=== PATIENT | female | born 1945 | race Two or more races ===

== ENCOUNTER 2025-04-19 15:11 | Inpatient (IN) | payer MEDICARE, MEDICAID, SELFPAY ==
[2025-04-19] VITALS (7 sets, daily range): BP systolic 127–153; BP diastolic 66–91; PULSE 58–102; RESP 16–18; TEMP 36.7–36.9; O2SAT 96–98; BMI 44.9
--- NOTE | 2025-04-19 16:24 | EKG_ITS ---
[facility] Test Date: 2025-04-19 Pat Name: NOE AUSTIN Department: Room: - Gender: Female Test Grader: : 1945 Requested By: Adeel Dominguez Order Number: [id number] Reading MD: Adeel Dominguez Measurements Intervals [place] Rate: 66 P: VA: QRS: -4 QRSD: 85 T: 38 QT: 345 QTc: 362 Interpretive Statements ATRIAL FIBRILLATION WITH ABERRANT CONDUCTION OR VENTRICULAR PREMATURE COMPLEXES ABNORMAL RHYTHM ECG Compared to ECG 05/26/2024 10:05:11 Ventricular premature complex(es) now present Aberrant conduction of supraventricular beat(s) now present /store/S0/[id number].pdf
--- NOTE | 2025-04-19 16:24 | XR_ITS ---
Examination: AP chest single view TECHNIQUE: AP portable upright chest single view Date and time: April 19, 2025 1635 hours Comparison 05/26/2024 INDICATIONS: Shortness of breath chest pain beginning today. FINDINGS: Mild chronic heart failure pattern Mild enlargement cardiac contour with prominent vascular congestion Suspicious for early septal edema the lung bases Severe osteopenia IMPRESSION: Mild heart failure pattern
--- NOTE | 2025-04-19 16:26 | PD.EDADULT ---
ED General RME/HPI General Chief complaint: Chest Pain Stated complaint: CHEST PAIN Time Seen by Provider: 04/19/25 16:14 Arrival date/time: 04/19/25 15:11 RME / HPI RME / HPI narrative: 80-year-old female with past medical history of hypertension, IBS, generalized weakness, CHF, hypothyroidism, and anxiety [facility] due to worsening shortness of breath and chest pain for the past 2 weeks. Patient states that she has had pressure-like chest pain for the past 2 weeks which is substernal and radiates to her back. She states that this chest pain does not improve or worsen with position and does not improve or worsen with rest. She says that the pain is continuous and today she has been having the chest pain since the morning up the time of assessment. She also mentioned that she has been a little bit more short of breath than normal and has been requiring oxygen since yesterday which is new for her. Otherwise denies having any abdominal pain, diarrhea, changes in urination, falls, fevers, or chills. Patient is mostly bedridden due to recent surgery due to fractures from a fall. Denies any smoking, drugs, alcohol Related Data Home Medications ?Medication ?Instructions ?Recorded ?Confirmed alprazolam 0.5 mg tablet 0.5 mg PO BID PRN Anxiety 01/05/21 05/26/24 gabapentin 100 mg capsule 100 mg PO HS 10/14/21 05/26/24 levothyroxine 25 mcg tablet 25 mcg PO QAM 10/14/21 05/26/24 acetaminophen 325 mg tablet 650 mg PO Q6H PRN Pain 12/28/21 05/26/24 amiodarone 200 mg tablet 200 mg PO QDAY 12/28/21 05/26/24 bisacodyl 10 mg rectal suppository 10 mg ID Q72H PRN Constipation 12/28/21 05/26/24 (Dulcolax (bisacodyl)) esomeprazole magnesium 40 mg 40 mg PO QAM 12/28/21 05/26/24 capsule,delayed release hydrocodone 5 mg-acetaminophen 325 1 tab PO Q6H PRN Pain 12/30/21 05/26/24 mg tablet furosemide 20 mg tablet 1 tab PO QDAY 06/06/22 05/26/24 Held on 05/31/24. Instructions: Resume on 06/07/24. Hold due to low BP, reevaluate with PCP magnesium hydroxide 400 mg/5 mL 5 ml PO QDAY PRN Constipation 08/12/22 05/26/24 oral suspension (Milk of Magnesia) ursodiol 200 mg capsule 200 mg PO BID 09/07/22 05/26/24 docusate sodium 100 mg capsule 100 mg PO BID 05/26/24 05/26/24 metoprolol succinate 100 mg 100 mg PO QDAY 05/26/24 05/26/24 tablet,extended release 24 hr (Toprol XL) Previous Rx's ?Medication ?Instructions ?Recorded lisinopril 20 mg tablet 20 mg PO QDAY #0 tabs 01/06/22 Held on 05/31/24. Instructions: Resume on 06/07/24. Hold due to low BP, re-evaluate with PCP Allergies Allergy/AdvReac Type Severity Reaction Status Date / Time No Known Allergies Allergy Verified 05/26/24 09:43 Review of Systems Review of Systems Systems Reviewed: All systems reviewed, normal except as documented Past Medical History Past Medical History CARDIAC: Positive Cardiac Disorders, Atrial Fibrillation and Hypertension RESPIRATORY: Positive Emphysema GASTROINTESTINAL: Positive Gastrointestinal Disorders, Ulcer, Gastroesophageal Reflux Disease and Obesity REPRODUCTIVE: Positive Previous Pregnancies MUSCULOSKELETAL: Positive Musculoskeletal Disorders and Arthritis ENT: Positive Deafness ENDOCRINE: Positive Endocrine Disorders and Hyperthyroidism PSYCHO/SOCIAL: Positive Depression and Anxiety OTHER HISTORY: Positive Hospitalization, Falls, Chicken Pox and Measles Family History FAMILY HISTORY: Positive Family Cancer Surgical History SURGICAL: Positive Tonsillectomy, Joint Replacement and Section Social History SMOKING STATUS: Never smoker SUBSTANCE USE: does not use ALCOHOL: Never ED Exam Narrative Physical exam: Gen: A&O X 3, NAD, obese HEENT: NCAT, EOMI, Pupils reactive YUMIKO, not icteric. External ears normal. No rhinorrhea. Moist mucous membranes, missing dentation. Neck: Supple, full range of motion, no observable masses, No meningeal sign. Lungs: No Respiratory distress, clear bilateral. CV: irregular rate, no murmurs. Abdomen: Soft, nondistended, No rebound tenderness. MSK: No joint swelling, no redness, peripheral pulses difficult to palpate due to swelling, bilateral anterior lower extremity with good healing anterior surgical scars. Skin: No rashes, petechiae, lesions. Neuro: No focal neurological deficits appreciated, sensory and motor intact. Psych: Cooperative, appropriate mood and effect. Course Quality Measures none Orders Category Date Time Status Bedside COVID-19 Antigen Test NOW Care 04/19/25 17:39 Active Bedside Influenza A&B Antigen Test NOW Care 04/19/25 17:[address] Screening NOW Care 04/19/25 18:09 Active Relations Director Q4H START 00 Care 04/19/25 16:24 Active Continuous Pulse Oximetry NOW Care 04/19/25 16:24 Completed EKG (ED ONLY) *Do not use* NOW Care 04/19/25 16:[address] angio chest Stat Exams 04/19/25 18:09 Ordered CXRP [XR chest 1V portable] Stat Exams 04/19/25 16:24 Completed EKG (ED Only) Stat Exams 04/19/25 16:24 Draft US venous doppler LE BI Stat Exams 04/19/25 17:59 Ordered CBC [CBC] Stat Lab 04/19/25 17:07 Completed CMP [Comprehensive Metabolic Panel] Stat Lab 04/19/25 17:07 Completed Drug Screen,Urine Stat Lab 04/19/25 16:24 Ordered Magnesium Stat Lab 04/19/25 17:07 Completed Procalcitonin Stat Lab 04/19/25 17:07 Completed Troponin I Stat Lab 04/19/25 17:07 Completed UA [Urinalysis] Stat Lab 04/19/25 16:24 Ordered Furosemide Inj [Lasix Inj] Med 04/19/25 17:00 Discontinued 40 mg IVP X1 ONE Vital Signs Vital signs: Vital Signs Temperature 98.0 F 04/19/25 15:26 Pulse Rate 70 04/19/25 15:26 Respiratory Rate 18 04/19/25 15:26 Blood Pressure 127/68 04/19/25 15:26 Pulse Oximetry (%) 98 04/19/25 15:26 Oxygen Delivery Method Room Air 04/19/25 15:26 Discharge Plan Prescriptions/Referrals Prescriptions/Med Rec: No Action magnesium hydroxide [Milk of Magnesia] 400 mg/5 mL suspension 5 ml PO QDAY PRN (Reason: Constipation) ursodiol 200 mg capsule 200 mg PO BID alprazolam 0.5 mg Tablet 0.5 mg PO BID PRN (Reason: Anxiety) hydrocodone-acetaminophen 5-325 mg Tablet 1 tab PO Q6H PRN (Reason: Pain) lisinopril 20 mg Tablet 20 mg PO QDAY Qty: 0 0RF Rx Instructions: Hold if SBP <110 or DBP <60 levothyroxine 25 mcg tablet 25 mcg PO QAM Patient Comments: TAKE 1 TABLET BY MOUTH EVERY DAY IN THE MORNING ON AN EMPTY STOMACH FOR THYROID gabapentin 100 mg capsule 100 mg PO HS acetaminophen 325 mg Tablet 650 mg PO Q6H PRN (Reason: Pain) amiodarone 200 mg Tablet 200 mg PO QDAY bisacodyl [Dulcolax (bisacodyl)] 10 mg Suppository 10 mg ID Q72H PRN (Reason: Constipation) esomeprazole magnesium 40 mg Capsule,Delayed Release(Dr/Ec) 40 mg PO QAM furosemide 20 mg tablet 1 tab PO QDAY Rx Instructions: Hold for SBP<110, DBP <60 metoprolol succinate [Toprol XL] 100 mg Tablet Extended Release 24 Hr 100 mg PO QDAY docusate sodium 100 mg Capsule 100 mg PO BID Referrals: No Primary/Family,Physician [Primary Care Provider] - In 1 week Problem List Clinical Impression: Hypoxia Patient/Caregiver Discharge Instructions Print Language: American MD Attestation MD Attestation The patient was seen by the resident physician and I personally evaluated the patient as well. I, the co-signing physician, was present during the entire ER visit. I agree with the plan and documentation. MDM Narrative MDM hospital course: Patient was seen and evaluated upon arrival. Diagnostic labs and imaging were ordered. Given chest x-ray findings will order Lasix 40 mg IV x 1 for vascular congestion. Given that patient does not use oxygen at home and is desaturating and has been in mostly bedridden given recent lower extremity surgery will order ultrasound venous Doppler and Chest CTA as is desaturating off oxygen. 1800: Will transfer patient's care to maintenance supervisor 2nd shift ED physician Dr. Chino. Case disclosed with Attending Dr. Ronan Dominguez PGY2 Disclaimer: Even though this this note was dictated by speech recognition and even though it was carefully revised there may still be minor errors in office machine repair shop supervisor due to voice recognition software. Medication Administration(s) Medication Administration History Discontinued Medications Furosemide (Furosemide Inj 10 Mg/Ml 4ml Vial) 40 mg IVP X1 ONE Stop: 04/19/25 17:01 Last Admin: 04/19/25 17:32 Dose: 40 mg Documented By: ANGEL
[2025-04-19 17:18] LABS: Basophils # (Auto) 0.0 Thou/mm3 (0.0-0.2); Basophils % (Auto) 0 % (0-2.5); Eosinophils # (Auto) 0.1 Thou/mm3 (0.0-0.5); Eosinophils % (Auto) 2 % (0-10); Hematocrit 39.9 % (36.0-46.0); Hemoglobin 12.4 g/dL (12.0-16.0); Immature Granulocytes Auto 0.03 Thou/mm3 (0.00-0.00); Lymphocytes # (Auto) 1.0 Thou/mm3 (1.0-4.8); Lymphocytes % (Auto) 13 % (10-50); Mean Corpuscular HGB Conc 31.1 g/dl (31.0-37.0); Mean Corpuscular Hemoglobin 29.0 pg (25.0-35.0); Mean Corpuscular Volume 93 fL (80-100); Monocytes # (Auto) 0.7 Thou/mm3 (0.0-0.8); Monocytes % (Auto) 9 % (0-12); Neutrophils # (Auto) 6.0 Thou/mm3 (1.8-7.7); Neutrophils % (Auto) 76 % (37-80); Nucleated Red Blood Cell # 0.00 Thou/mm3 (0.00-0.00); Nucleated Red Blood Cell % 0 /100 WBC (0); Platelet Count 232 Thou/mm3 (140-440); RDW Standard Deviation 53.1 fL (36.4-46.3); Red Blood Count 4.27 Miln/mm3 (4.00-5.20); White Blood Count 7.9 Thou/mm3 (3.6-11.0)
[2025-04-19] MEDS: FUROSEMIDE INJ 10 MG/ML 4ML VIAL 40 MG IVP (17:32)
[2025-04-19 17:46] LABS: Alanine Aminotransferase 25 U/L (10-49); Albumin, Serum 3.7 gm/dL (3.4-4.8); Albumin/Globulin Ratio 1.2 (1.2-2.2); Alkaline Phosphatase 129 U/L (46-116); Anion Gap 5 (7-16); Aspartate Amino Transferase 57 U/L (0-34); BUN/Creatinine Ratio 12 Ratio (12-20); Bilirubin,Total 0.4 mg/dL (0.3-1.2); Blood Urea Nitrogen 11 mg/dL (9-23); Calcium 8.9 mg/dL (8.3-10.6); Calcium (Corrected) 9.1 mg/dL (8.5-10.1); Carbon Dioxide 34.2 mMol/L (20.0-31.0); Chloride 98 mMol/L (98-107); Creatinine (Component) 0.9 mg/dL (0.6-1.3); Estimated Creatinine Clearance 61.1 mL/min (>60); Globulin 3.0 gm/dL (2.3-3.5); Glucose 124 mg/dL (74-106); Magnesium 2.0 mg/dL (1.6-2.6); Osmolality,Calculated 274 (275-295); Potassium 4.4 mMol/L (3.4-5.1); Procalcitonin 0.06 ng/ml (0.0-0.49); Sodium 137 mMol/L (136-145); Total Protein 6.7 gm/dL (5.7-8.2); Troponin I < 0.020 ng/mL (0.0-0.045); eGFR > 60 See Note
--- NOTE | 2025-04-19 17:59 | XR_ITS ---
Examination: Venous duplex lower extremity sonogram, bilateral. Date and time of exam: April 19, 2025 2019 hours INDICATIONS: Leg pain beginning several weeks ago. Technique: Multiple sonographic images of the deep venous system have been obtained. B-mode/2-D grayscale imaging of vascular structures and Doppler spectral analysis (waveforms) and color performed Both legs are examined. Findings: Deep venous systems do not demonstrate abnormal echogenicity. No diagnostic visualization distal right superficial femoral and right popliteal right peroneal veins, left popliteal left peroneal veins All visualized deep veins exhibit compressibility. All visualized deep veins exhibit augmentation. Impression: Limited study, no DVT demonstrated
[2025-04-19 18:54] LABS: Collection Type, Urine Voided
--- NOTE | 2025-04-19 18:56 | EDNOTE_ITS ---
Emergency Room Addendum <Dyan Pollard - Last Filed: 04/19/25 22:32> Addendum Narrative: 1900: Care assumed from Dr. Celis (emergency physician). Past medical, surgical, social and family history reviewed. Vitals and home medications reviewed. Results and treatment plan discussed. I will assume the care of the patient at this time and will follow the patient, pending chest CTA and venous doppler study of Lower extremities. The following addendum documentation note is intended to reflect any pending information, findings, or radiology results not included in the patient?s initial chart by the previous shift scribe. RADIOLOGY Venous Doppler LE: Findings: Deep venous systems do not demonstrate abnormal echogenicity. No diagnostic visualization distal right superficial femoral and right popliteal right peroneal veins, left popliteal left peroneal veins All visualized deep veins exhibit compressibility. All visualized deep veins exhibit augmentation. Impression: Limited study, no DVT demonstrated <Adeel Dominguez MD - Last Filed: 04/19/25 19:04> Addendum Narrative: 1900: Care assumed from Dr. Celis (emergency physician). Past medical, surgical, social and family history reviewed. Vitals and home medications reviewed. Results and treatment plan discussed. I will assume the care of the patient at this time and will follow the patient, pending chest CTA and venous doppler study of Lower extremities. The following addendum documentation note is intended to reflect any pending information, findings, or radiology results not included in the patient?s initial chart by the previous shift scribe. <Sarthak Chino DO - Last Filed: 04/20/25 01:19> Addendum Narrative: 1900: Care assumed from Dr. Celis (emergency physician). Past medical, surgical, social and family history reviewed. Vitals and home medications reviewed. Results and treatment plan discussed. I will assume the care of the patient at this time and will follow the patient, pending chest CTA and venous doppler study of Lower extremities. The following addendum documentation note is intended to reflect any pending information, findings, or radiology results not included in the patient?s initial chart by the previous shift scribe. RADIOLOGY Venous Doppler LE: Findings: Deep venous systems do not demonstrate abnormal echogenicity. No diagnostic visualization distal right superficial femoral and right popliteal right peroneal veins, left popliteal left peroneal veins All visualized deep veins exhibit compressibility. All visualized deep veins exhibit augmentation. Impression: Limited study, no DVT demonstrated Case was signed out to me. Bilateral lower extremity Doppler ultrasound showed no evidence of deep venous thrombosis. BNP is elevated. Patient's O2 saturation is 88% on room air. She is not on oxygen at her half-way facility. She had already been given Lasix 40 mg IV and she is diuresing. I have given the patient another 40 mg of Lasix IV. Chest x-ray shows evidence for vascular congestion and pulmonary edema. Troponin is not elevated. BNP is 2-1/2 times normal. I believe this patient needs to be placed in the hospital and diuresed and followed closely to make sure her oxygen saturations improved. I did discuss this case with the hospitalist who will admit the patient to hospital for further treatment and evaluation. EKG does show atrial fibrillation with a ventricular sponsor [address] change. Patient has a history of atrial fibrillation and is anticoagulated.
[2025-04-19 19:02] LABS: Bacteria,Urine 4+; Bilirubin,Urine Negative (Negative); Blood,Urine Negative (Negative); Clarity,Urine Clear (Clear/Hazy); Color,Urine Colorless (Lt Yel-Yel); Glucose, Urine Negative (Negative); Hyaline Casts,Urine < 1 /hpf (0-1); Ketones,Urine Negative (Negative); Leukocyte Esterase,Urine Positive (Negative); Nitrite,Urine Negative (Negative); PH,Urine 6.5 (5.0-7.0); Protein,Urine Negative (Neg - Trace); RBC,Urine 1 /hpf (0-3); Specific Gravity,Urine 1.007 (1.001-1.035); Squamous Epithelial Cell,Urine 2 /hpf (0-5); Urobilinogen,Urine Negative mg/dL (0.0-1.0); WBC,Urine 2 /hpf (0-5)
[2025-04-19 19:06] LABS: Amphetamine/Methamp Scrn,U Negative (Negative); Barbiturate Screen,Urine Negative (Negative); Benzodiazepines Screen,Urine Negative (Negative); Benzoylecgonine Screen, Ur Negative (Negative); Fentanyl Screen,Urine Negative (Negative); Opiate Screen,Urine Negative (Negative); THC Screen,Urine Negative (Negative)
--- NOTE | 2025-04-19 21:02 | PC.NURSE ---
pt iv blew twice in ct doesnot want ct or another iv aware
[2025-04-19 21:55] LABS: B-Type Natriuretic Peptide 237 pg/mL (0-100)
[2025-04-20] VITALS (18 sets, daily range): BP systolic 117–157; BP diastolic 50–83; PULSE 39–84; RESP 17–22; TEMP 36.2–36.6; O2SAT 96–99; BMI 47.6
[2025-04-20] MEDS: FUROSEMIDE INJ 10 MG/ML 4ML VIAL 40 MG IVP ×2 (01:36→09:43)
[2025-04-20] MEDS: GABAPENTIN 100 MG CAPSULE PO ×2 (03:08→20:19)
--- NOTE | 2025-04-20 03:42 | ESHP_ITS ---
<Statement entered by Nick Moncada MD - 04/20/25 07:52> I have discussed and was present for the essential components of the history, physical examination, diagnosis, and treatment plan with the resident. I agree with the patient's care as documented by the resident and amended herein by me. Nick Moncada MD FACP. 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 Patient stated that increasing shortness of breath over the last several days, reported minimal pedal edema and worsening paroxysmal nocturnal orthopnea. Patient at baseline is mostly confined to her bed but experience orthopnea with short distances when she tries to do physical therapy at [facility]. When oxygen was removed during History and physical, patient dropped down to 84%. Paitent deniech chest pain. Denied recent sick contacts. Denied diarrhea. Denied cough. ER Course: Vitals: Blood pressure 127/60, HR 70, RR 18, temperature 98.0, SpO2 98% on 4 L--> during physical exam after oxygen was removed patient desatted to 84% CMP sodium 137, K4.4, chloride 98, bicarb 34.2, BUN 11, creatinine 0.9, GFR greater than, glucose 124 BNP 237, troponin 0.02, procalcitonin 0.06 Chest x-ray heart failure pattern, prominent vascular congestion, suspicious for early septal edema COVID and influenza negative UA positive for WBC 2 bacteria 4--> denied dysuria or increased frequency U-Tox negative Venous Doppler: Negative for DVTs Limited study EKG atrial fibrillation heart rate 66 Lasix 40 mg IV push x 2 History: hypertension, atrial fibrillation on Eliquis, CHF HFrEF 35 to 44% (422), hypothyroidism, morbid obesity, IBS, Depression, Anxiety Medication: Albuterol, Alprazolam PRN , Amiodarone, Eliquis, Lasix 20 mg once daily, Gabapentin, Noroc, Levothyroxine 25 mcg, Lisinopril 20 mg, Metroplol XL 100 mg once daily, Sertraline 25 mg , ursodiol Surgical History: , Fibula fracture repair Allergies None Social Hx: denied alcohol use, never smoker, denied illicit drug use Code: Full Code Admitted on 04/20/2025 for acute hypoxic respiratory failure and acute on chronic CHF exacerbation. Review of Systems Review of Systems Narrative Review of Systems: General appearance: NO weight change, NO fatigue, NO weakness, NO fever, NO chills, NO night sweats, No cough Skin: NO rash, NO itching, NO sores, NO moles HEENT: NO Trauma, NO nausea, NO vomiting, NO visual changes, NO blurry vision, NO double vision, NO tinnitus, NO vertigo, NO ear discharge, NO rhinorrhea, NO stuffiness, NO sneezing, NO allergy, NO epistaxis. NO Hoarseness, NO sore throat, NO swollen neck. Cardiac: NO Palpitations, NO dyspnea on exertion, NO orthopnea, NO paroxysmal nocturnal dyspnea, NO edema Respiratory: NO Shortness of Breath, NO Wheezing, NO Cough, NO Sputum, NO hemoptysis GI:NO appetite, NO nausea, NO vomiting, NO dysphagia, NO changes in bowel frequency, NO stool color, NO diarrhea, NO constipation, NO hemetemesis, NO hemorrhoids, NO melena, NO hematechezia, NO abdominal pain, NO jaundice Renal: NO frequency, NO hesitancy, NO urgency, NO hematuria, NO nocturia, NO incontinence MSK: NO muscle weakness, NO gout, NO arthritis, NO muscle stiffness Neuro: NO headaches, NO tremors, NO weakness, NO paralysis, NO seizures, NO loss of consciousness, NO numbness. Hem: NO anemia, NO easy bruising/bleeding, NO petechiae, NO purpura Endo: NO heat/cold intolerance, NO excessive sweating, NO polyuria, NO polydipsia, NO polyphagia, NO thyroid problems, NO diabetes Pysch: NO mood, NO anxiety, NO depression Exam Vital Signs Temp Pulse Resp BP Pulse Ox O2 Del Method O2 Flow Rate 97.7 F 61 19 151/73 H 99 Nasal Cannula 3 04/20/25 02:53 04/20/25 03:34 04/20/25 03:34 04/20/25 02:53 04/20/25 03:34 04/20/25 02:53 04/20/25 03:34 Narrative Exam General Appearance: Alert & Oriented X3, well-nourished female who is lying in bed in mild distress secondary to shortness of breath HEENT: Skull symmetrical and atraumatic. Conjunctivae pink and moist. Pupils equal, round, reactive to light and accommodation (PERRL). External ear without lesion or discharge. Straight, nares patient, mucosa pink, no discharge. No thyroid nodule appreciated. No cervical lymphadenopathy. Cardio: Normal Rate and Rhythm with S1 and S2 heart sounds, difficult to appreciate given body habitus. No murmurs or extra heart sounds auscultated. No bruits on carotid auscultation. Yes peripheral edema, 2+ Lungs: Symmetric with good expansion. Chest and back non-tender. Breath sounds vesicular without crackles, wheezing or rhonchi Abdomen: Non-tender, Non-distended, Normal Reactive Bowel Sounds Neuro: Alert, cooperative, oriented to person, place, and time. Speech clear. CN grossly intact. Upper motor strength 5/5 and Lower motor strength 5/5. Sensation intact. Results: Labs 04/19/25 17:07 04/20/25 04:25 Labs: Short CBC 04/19/25 Range/Units 17:07 WBC 7.9 (3.6-11.0) Thou/mm3 Hgb 12.4 (12.0-16.0) g/dL Hct 39.9 (36.0-46.0) % Plt Count 232 (140-440) Thou/mm3 BMP 04/19/25 17:07 Sodium 137 Potassium 4.4 Chloride 98 Carbon Dioxide 34.2 H BUN 11 Creatinine 0.9 Glucose 124 H Calcium 8.9 Cardiac Enzymes 04/19/25 Range/Units 17:07 Troponin I < 0.020 (0.0-0.045) ng/mL Liver Function 04/19/25 Range/Units 17:07 Total Bilirubin 0.4 (0.3-1.2) mg/dL AST 57 H (0-34) U/L ALT 25 (10-49) U/L Alkaline Phosphatase 129 H (46-116) U/L Albumin 3.7 (3.4-4.8) gm/dL Urine 04/19/25 Range/Units 18:50 Urine Color Colorless A (Lt Yel-Yel) Urine Clarity Clear (Clear/Hazy) Urine pH 6.5 (5.0-7.0) Ur Specific [place] 1.007 (1.001-1.035) Urine Protein Negative (Neg - Trace) Urine Glucose (UA) Negative (Negative) Quality Measures Quality Measures none Advance care planning discussed with:: patient Medications Home Medications and Allergies Home Medications ?Medication ?Instructions ?Recorded ?Confirmed ?Type alprazolam 0.5 mg tablet 0.5 mg PO BID PRN Anxiety 05/26/24 History gabapentin 100 mg capsule 100 mg PO HS 10/14/21 History levothyroxine 25 mcg tablet 25 mcg PO QAM 10/14/21 History acetaminophen 325 mg tablet 650 mg PO Q6H PRN Pain 05/26/24 History amiodarone 200 mg tablet 200 mg PO QDAY 12/28/2105/07 History bisacodyl 10 mg rectal suppository 10 mg SC Q72H PRN C onstipation 12/28/21 05/26/24 History (Dulcolax (bisacodyl)) esomeprazole magnesium 40 mg 40 mg PO QAM 12/28/21 History capsule,delayed release hydrocodone 5 mg-acetaminophen 325 1 tab PO Q6H PRN Pa in 12/30/21 05/26/24 History mg tablet furosemide 20 mg tablet 1 tab PO QDAY 06/06/2205/26 History Held on 05/31/24. Instructions: Resume on 06/07/24. Hold due to low BP, reevaluate with PCP magnesium hydroxide 400 mg/5 mL 5 ml PO QDAY PRN Const ipation 08/12/22 05/26/24 History oral suspension (Milk of Magnesia) ursodiol 200 mg capsule 200 mg PO BID 09/07/2205/26 History docusate sodium 100 mg capsule 100 mg PO BID 05/26/24 05/26/24 History metoprolol succinate 100 mg 100 mg PO QDAY 05/26/24 History tablet,extended release 24 hr (Toprol XL) Allergies Allergy/AdvReac Type Severity Reaction Status Date / Time No Known Allergies Allergy Verified 05/26/24 09:43 Visit Medications Acetaminophen (Acetaminophen 325 Mg Tablet) 650 mg PO Q6H PRN PRN Reason: mild pain 1-3 or Fever >100.3 Stop: 05/20/25 02:28 Amiodarone HCl (Amiodarone Hcl 200 Mg Tablet) 200 mg PO QDAY [facility] Stop: 05/20/25 08:59 Apixaban (Apixaban 2.5 Mg Tablet) 5 mg PO BID [facility] Stop: 05/20/25 08:59 Famotidine (Famotidine 20 Mg Tablet) 20 mg PO BID [facility] Stop: 05/20/25 08:59 Furosemide (Furosemide Inj 10 Mg/Ml 4ml Vial) 40 mg IVP QDAY [facility] Stop: 05/20/25 08:59 Gabapentin (Gabapentin 100 Mg Capsule) 100 mg PO HS [facility] Stop: 05/20/25 02:39 Last Admin: 04/20/25 03:08 Dose: 100 mg Heparin Sodium (Porcine) (Heparin Sod Inj 5000 Unit/Ml Vial) 5,000 unit SC Q12HR [facility] Stop: 05/04/25 08:59 Lisinopril (Lisinopril 20 Mg Tablet) 20 mg PO QDAY [facility] Stop: 05/20/25 08:59 Ondansetron HCl (Ondansetron Inj 2 Mg/Ml Inj 2 Ml) 4 mg IVP Q6H PRN; Protocol PRN Reason: NAUSEA OR VOMITING Stop: 05/20/25 02:28 Sennosides (Senna Tablet) 1 tab PO QDAY [facility]; Protocol Stop: 05/20/25 08:59 Discontinued Medications Furosemide (Furosemide Inj 10 Mg/Ml 4ml Vial) 40 mg IVP X1 ONE Stop: 04/19/25 17:01 Last Admin: 04/19/25 17:32 Dose: 40 mg Furosemide (Furosemide Inj 10 Mg/Ml 4ml Vial) 40 mg IVP X1 ONE Stop: 04/20/25 01:07 Last Admin: 04/20/25 01:36 Dose: 40 mg Assessment & Plan Plan Patient is an 80-year-old female with a past medical history of hypertension, atrial fibrillation on Eliquis, CHF HFrEF 35 to 44% (422), hypothyroidism, morbid obesity, IBS, Depression, Anxiety who was admtited for acute hypoxic respiratory failure and acute on chronic CHF exacerbation. #Acute Hypoxic Respiratory Failure #Acute on chornic CHF exacerbation #CHF HFrEF 35 to 44% (4/22) Patient presented with worsening lower peripheral edema, orthopnea, PND, and pulmonary vascular congestion noted on Cxr. BNP 237 likely CHF exacerbation vs PE less likely given Well Criteria of 1.5 and patient already on anticoagulated given Eliquis for Afib vs pneumonia unlikely as no pyrexia or leukoyctosis. Plan: -Lasix 40 mg IV Qday -Metoprolol 100 mg PO Qday -Echo -TSH -Lipid Panel -A1c -K>4 and Mg >2 -Fluid Restriction 1800 and Sodium Restriction 2 g per day -SpO <90%, support PRN -Daily Weights -Work toward GDMT -Cardiology Consult, appreciate recommendations. #Atrial Fibrillation rate controlled Patient has past medical history of Atrial Fibrillation on Amiodarone 200 mg PO Qday, currently rate controlled. Plan -Amiodarone 200 mg qday -Eliquis 5 mg PO BID -Tele monitor -Continue to monitor Electrolytes #Hypertension Past medical history of hypertension Plan -Resume Lisinopril 20 mg PO Qday -continue to monitor BP #Hypothyroidism -Home medication of levothyroxine 25 mcg plan -TSH was ordered -resume levothyroxine #Anxiety [employer] has a past medical history of anxiety. Plan -Pending med rec, consider adding Health Maintenance: Disp: Pt is currently admitted to floors for further management of CHF exacerbation , awaiting echo and cardio FEN: Cardiac Diet DVT: Eliquis 5 mg BID Code: Full Code - The patient's plan was discussed with attending Dr. Coral Figueroa MD PGY2 Internal Medicine
[2025-04-20 05:29] LABS: Glucose Estimated Average 123 mg/dL (80-131); Hemoglobin A1C 5.9 % Hgb (4.8-6.0)
[2025-04-20 06:02] LABS: Alanine Aminotransferase 21 U/L (10-49); Albumin, Serum 3.3 gm/dL (3.4-4.8); Albumin/Globulin Ratio 1.1 (1.2-2.2); Alkaline Phosphatase 107 U/L (46-116); Anion Gap 7 (7-16); Aspartate Amino Transferase 50 U/L (0-34); BUN/Creatinine Ratio 13 Ratio (12-20); Bilirubin,Total 0.5 mg/dL (0.3-1.2); Blood Urea Nitrogen 10 mg/dL (9-23); Calcium 8.8 mg/dL (8.3-10.6); Calcium (Corrected) 9.4 mg/dL (8.5-10.1); Carbon Dioxide 35.9 mMol/L (20.0-31.0); Cardiac Risk Estimate 2.9 RATIO (3.7-5.6); Chloride 97 mMol/L (98-107); Cholesterol 114 mg/dL (132-200); Creatinine (Component) 0.8 mg/dL (0.6-1.3); Estimated Creatinine Clearance 68.8 mL/min (>60); Globulin 2.9 gm/dL (2.3-3.5); Glucose 113 mg/dL (74-106); HDL Cholesterol 40 mg/dL (40-60); LDL Cholesterol,Calculated 58 mg/dL (0-130); Magnesium 1.4 mg/dL (1.6-2.6); Osmolality,Calculated 279 (275-295); Potassium 4.5 mMol/L (3.4-5.1); Sodium 140 mMol/L (136-145); Thyroid Stimulating Hormone 4.08 uIU/mL (0.55-4.78); Total Protein 6.2 gm/dL (5.7-8.2); Triglycerides 82 mg/dL (30-150); eGFR > 60 See Note
--- NOTE | 2025-04-20 07:37 | PD.RESPRO ---
Documentation for date of: 04/20/25 Subjective Subjective Interval history: Patient examined bedside today. No acute events. Patient reports improvement in her shortness of breath. She says that her engineering program analyst is Dr. De Paz, however has not seen the patient in over 5 years. She denies any chest pain at this time. She says that her shortness of breath is improving, however she has had the symptoms before. No other complaints at this time. Exam Vital Signs Temp Pulse Resp BP Pulse Ox O2 Del Method O2 Flow Rate 97.9 F 61 20 151/74 H 96 Nasal Cannula 2 04/20/25 06:02 04/20/25 06:20 04/20/25 06:02 04/20/25 06:02 04/20/25 06:02 04/20/25 06:02 04/20/25 06:02 Narrative Exam General: AAOx3, NAD, morbidly obese HEENT: Moist mucous membranes, conjunctiva clear, EOMI, PERRLA, poor dentition Cardiovascular: S1, S2, radial pulses +2 bilat, RRR Pulmonary: Crackles present diffusely, no cough, no wheezing GI: No tenderness to light or deep palpitation, no guarding, rigidity, rebound tenderness or distension Extremities: Anasarca present going to proximal LE bilat Neuro: AAOx3, no focal motor or sensory deficits in the UE or LE bilat Psych: Good judgement, thought and behavior Objective Labs 04/23/25 04:42 04/23/25 04:42 Labs: Laboratory Results - last 24 hr 04/19/25 04/19/25 04/19/25 17:07 18:50 21:20 WBC 7.9 RBC 4.27 Hgb 12.4 Hct 39.9 MCV 93 MCH 29.0 MCHC 31.1 RDW Std Deviation 53.1 H Plt Count 232 Neut % (Auto) 76 Lymph % (Auto) 13 Lucas % (Auto) 9 Eos % (Auto) 2 Baso % (Auto) 0 Neut # (Auto) 6.0 Lymph # (Auto) 1.0 Lucas # (Auto) 0.7 Eos # (Auto) 0.1 Baso # (Auto) 0.0 Immature Gran # (Auto) 0.03 H Absolute Nucleated RBC 0.00 Immature Gran % 0 Nucleated RBC % 0 Sodium 137 Potassium 4.4 Chloride 98 Carbon Dioxide 34.2 H Anion Gap 5 L BUN 11 Creatinine 0.9 Estim Creat Clear Calc 61.1 eGFR > 60 BUN/Creatinine Ratio [address] Glu mg/dL Hemoglobin A1c Calculated Osmolality 274 L Calcium 8.9 Corrected Calcium 9.1 Magnesium 2.0 Total Bilirubin 0.4 AST 57 H ALT 25 Alkaline Phosphatase 129 H Troponin I < 0.020 B-Natriuretic Peptide 237 H Total Protein 6.7 Albumin 3.7 Globulin 3.0 Albumin/Globulin Ratio 1.2 Triglycerides Cholesterol LDL Cholesterol, Calc HDL Cholesterol Cholesterol/HDL Ratio Procalcitonin 0.06 TSH Ur Collection Type Voided Urine Color Colorless A Urine Clarity Clear Urine pH 6.5 Ur Specific [place] 1.007 Urine Protein Negative Urine Glucose (UA) Negative Urine Ketones Negative Urine Blood Negative Urine Nitrite Negative Urine Bilirubin Negative Urine Urobilinogen (Auto) Negative Ur Leukocyte Esterase Positive Urine RBC 1 Urine WBC 2 Ur Squamous Epith Cells 2 Urine Bacteria 4+ A Hyaline Casts < 1 Urine Opiates Screen Negative Urine Fentanyl Screen Negative Ur Barbiturates Screen Negative U Amphetamin/Meth Scrn Negative U Benzodiazepines Scrn Negative U Cocaine Metab Screen Negative U Marijuana (THC) Screen Negative 04/20/25 04:25 WBC RBC Hgb Hct MCV MCH MCHC RDW Std Deviation Plt Count Neut % (Auto) Lymph % (Auto) Lucas % (Auto) Eos % (Auto) Baso % (Auto) Neut # (Auto) Lymph # (Auto) Lucas # (Auto) Eos # (Auto) Baso # (Auto) Immature Gran # (Auto) Absolute Nucleated RBC Immature Gran % Nucleated RBC % Sodium 140 Potassium 4.5 Chloride 97 L Carbon Dioxide 35.9 H Anion Gap 7 BUN 10 Creatinine 0.8 Estim Creat Clear Calc 68.8 eGFR > 60 BUN/Creatinine Ratio 13 [address]ucose [address] Glu mg/dL 123 Hemoglobin A1c 5.9 Calculated Osmolality 279 Calcium 8.8 Corrected Calcium 9.4 Magnesium 1.4 L Total Bilirubin 0.5 AST 50 H ALT 21 Alkaline Phosphatase 107 D Troponin I B-Natriuretic Peptide Total Protein 6.2 Albumin 3.3 L Globulin 2.9 Albumin/Globulin Ratio 1.1 L Triglycerides 82 Cholesterol 114 L LDL Cholesterol, Calc 58 HDL Cholesterol 40 Cholesterol/HDL Ratio 2.9 L Procalcitonin TSH 4.08 Ur Collection Type Urine Color Urine Clarity Urine pH Ur Specific [place] Urine Protein Urine Glucose (UA) Urine Ketones Urine Blood Urine Nitrite Urine Bilirubin Urine Urobilinogen (Auto) Ur Leukocyte Esterase Urine RBC Urine WBC Ur Squamous Epith Cells Urine Bacteria Hyaline Casts Urine Opiates Screen Urine Fentanyl Screen Ur Barbiturates Screen U Amphetamin/Meth Scrn U Benzodiazepines Scrn U Cocaine Metab Screen U Marijuana (THC) Screen Quality Measures Quality Measures none Advance care planning discussed with:: patient Assessment & Plan Assessment Current Active Medications: Generic Name Dose Route Start Last Admin Trade Name Freq PRN Reason Stop Dose Admin Acetaminophen 650 mg 04/20/25 02:29 Acetaminophen 325 Mg Tablet PO 05/20/25 02:28 Q6H PRN mild pain 1-3 or Fever >100.3 Amiodarone HCl 200 mg 04/20/25 09:00 Amiodarone Hcl 200 Mg Tablet PO 05/20/25 08:59 QDAY RICARDA Apixaban 5 mg 04/20/25 09:00 Apixaban 2.5 Mg Tablet PO 05/20/25 08:59 BID RICARDA Famotidine 20 mg 04/20/25 09:00 Famotidine 20 Mg Tablet PO 05/20/25 08:59 BID RICARDA Furosemide 40 mg 04/20/25 09:00 Furosemide Inj 10 Mg/Ml 4ml Vial IVP 05/20/25 08:59 QDAY RICARDA Gabapentin 100 mg 04/20/25 02:40 04/20/25 03:08 Gabapentin 100 Mg Capsule PO 05/20/25 02:39 100 mg HS RICARDA Administration Magnesium Sulfate 4 gm in 50 mls @ 12.5 mls/hr 04/20/25 07:31 Magnesium Sulfate Ivpb IV 04/20/25 11:30 X1 ONE Levothyroxine Sodium 25 mcg 04/20/25 06:00 Levothyroxine Sodium 25 Mcg Tablet PO 05/20/25 05:59 ACBR RICARDA Lisinopril 20 mg 04/20/25 09:00 Lisinopril 20 Mg Tablet PO 05/20/25 08:59 QDAY RICARDA Metoprolol Succinate 100 mg 04/20/25 09:00 Metoprolol Succinate Xl 25 Mg Tabcr PO 05/20/25 08:59 QDAY RICARDA Ondansetron HCl 4 mg 04/20/25 02:29 Ondansetron Inj 2 Mg/Ml Inj 2 Ml IVP 05/20/25 02:28 Q6H PRN NAUSEA OR VOMITING Protocol Sennosides 1 tab 04/20/25 09:00 Senna Tablet PO 05/20/25 08:59 QDAY [facility] Protocol Plan Assessment Yin is an 80-year-old female with a past medical history of hypertension, atrial fibrillation on Eliquis, CHF HFrEF 35 to 44% (422), hypothyroidism, morbid obesity, IBS, Depression, Anxiety who was admtited for acute hypoxic respiratory failure and acute on chronic CHF exacerbation. #Acute Hypoxic Respiratory Failure, improving, secondary to #Acute on chornic CHF exacerbation #CHF HFrEF 35 to 44% (4/22) Patient presented with worsening lower peripheral edema, orthopnea, PND, and pulmonary vascular congestion noted on Cxr. BNP 237 likely CHF exacerbation vs PE less likely given Well Criteria of 1.5 and patient already on anticoagulated given Eliquis for Afib vs pneumonia unlikely as no pyrexia or leukoyctosis. Plan: ? Cardiology consulted, appreciate recommendations ? Lasix 40 mg IV daily ? Continue home metoprolol XL 100 mg ? Echo ? K>4 and Mg >2 ? Fluid Restriction 1800 and Sodium Restriction 2 g per day ? SpO <90%, support PRN ? Daily Weights ? GDMT as tolerated #Chronic Atrial Fibrillation, rate controlled [id number] HAS-BLED: 3 Rate: Regular Rhythm: Controlled AC: Eliquis Patient could possibly on Xarelto due to weight being 118 kg however is on Eliquis Plan: ? Continue home Amio 200 mg every day ? Continue home metoprolol XL 100 mg by mouth every day ? Continue Eliquis 5 mg by mouth twice daily ? Telemetry ? Keep magnesium and potassium above 2 and 4 respectively #Hypertension #Prediabetes Chronic HTN A1c 5.9 Plan: ? Continued home lisinopril 20 mg PO Qday #Hypothyroidism TSH 4 Plan: ? Continue home 25 mcg AC SD levothyroxine # History of anxiety Chronic Plan: ? Resumed home Zoloft 50 mg #Health Maintenance Disposition: Telemetry DVT prophylaxis: Eliquis GI prophylaxis: Protonix Diet: Cardiac CODE STATUS: Full Patient seen and care discussed with my attending physician, Dr. Quincy Stevens, PGY-2 Attending Provider Attestation/Addendum Patient seen and examined at bedside with resident. Agree with the assessment and plan as dictated above. Santy Mathew MD
[2025-04-20] MEDS: APIXABAN 2.5 MG TABLET 5 MG PO ×2 (09:36→20:19)
[2025-04-20] MEDS: AMIODARONE HCL 200 MG TABLET PO (09:40)
[2025-04-20] MEDS: FAMOTIDINE 20 MG TABLET PO ×2 (09:40→20:19)
[2025-04-20] MEDS: METOPROLOL SUCCINATE XL 25 MG TABCR 100 MG PO (09:41)
[2025-04-20] MEDS: Magnesium Sulfate 4 GM Ivpb 4 GM/50 ML BAG IV (09:52)
--- NOTE | 2025-04-20 15:02 | EKG_ITS ---
[facility] Test Date: 2025-04-20 Pat Name: NOE AUSTIN [facility] Gender: Female [employer] Finisher: MAXWELL : 1945 Requested By: Maycol Russell Order Number: [id number] Reading MD: Maycol Russell Measurements Intervals [place] Rate: 61 P: MD: QRS: -2 QRSD: 102 T: 38 QT: 339 QTc: 344 Interpretive Statements ATRIAL FIBRILLATION ABNORMAL RHYTHM ECG Compared to ECG 04/19/2025 16:29:11 Ventricular premature complex(es) no longer present Aberrant conduction of supraventricular beat(s) no longer present /store/S0/[id number]
[2025-04-20] MEDS: MELATONIN 3 MG TABLET PO (20:19)
[2025-04-20] MEDS: SERTRALINE HCL 25 MG TABLET 50 MG PO (20:19)
--- NOTE | 2025-04-20 21:02 | ESCONSULT_ITS ---
<Statement entered by Nilesh De Paz MD - 04/21/25 19:18> I personally examined the patient evaluated with who is very well-known to me has history of coronary angiogram that was negative in the past admitted to hospital with atypical presentation of shortness of breath appears to be mild heart failure BNP slightly elevated patient ejection fraction is well-preserved. The patient is a resident physician PGY 2 agree with the treatment plan recommendation as documented. No further cardiac workup is necessary at this time. HPI Data of Consult Requesting Physician: Nick Moncada MD Admitting Provider: Nick Moncada MD Attending Provider: Nick Moncada MD Primary Care Provider: Milly Garcia MD Consult Narrative History of present illness: This is an 80-year-old female with PMH of hypertension, atrial fibrillation on ELIQUIS, HFpEF EEF 60% from 04/2024, hypothyroidism, morbid obesity, IBS, depression, and anxiety who presented from her assisted living facility with worsening shortness of breath and pulmonary congestion on chest X-ray. She reported orthopnea, paroxysmal nocturnal dyspnea, and minimal pedal edema. On room air, her oxygen saturation dropped to 84%. Labs showed mild hyperglycemia, elevated bicarb, and BNP 237. Troponin and procalcitonin were normal. Urinalysis showed minimal WBCs/bacteria without urinary symptoms. Imaging revealed pulmonary vascular congestion consistent with CHF exacerbation; Doppler was negative for DVT, and EKG showed rate-controlled atrial fibrillation. She continued on diuresis, AMIODARONE, and ELIQUIS. She had good urine output of 1.4 L. Renal function remains stable. Symptoms overall improved. cc:: cc: Nick Moncada MD Exam Vital Signs Temp Pulse Resp BP Pulse Ox O2 Del Method O2 Flow Rate 97.2 F 64 17 125/50 L 97 Nasal Cannula 3 04/20/25 20:00 04/20/25 20:00 04/20/25 20:00 04/20/25 20:00 04/20/25 20:00 04/20/25 20:00 04/20/25 16:00 Narrative Exam General: AAOx3, NAD, morbidly obese HEENT: Moist mucous membranes, conjunctiva clear, EOMI, PERRLA, poor dentition Cardiovascular: S1, S2, radial pulses +2 bilat, RRR Pulmonary: CTAB, no wheezing or rales or rhonchi. GI: No tenderness to light or deep palpitation, no guarding, rigidity, rebound tenderness or distension Extremities: 1+ bilateral extremity edema Neuro: AAOx3, no focal motor or sensory deficits in the UE or LE bilat Psych: Good judgement, thought and behavior Results Labs 04/19/25 17:07 04/20/25 04:25 Labs: BMP 04/20/25 04:25 Sodium 140 Potassium 4.5 Chloride 97 L Carbon Dioxide 35.9 H BUN 10 Creatinine 0.8 Glucose 113 H Calcium 8.8 Liver Function 04/20/25 Range/Units 04:25 Total Bilirubin 0.5 (0.3-1.2) mg/dL AST 50 H (0-34) U/L ALT 21 (10-49) U/L Alkaline Phosphatase 107 D (46-116) U/L Albumin 3.3 L (3.4-4.8) gm/dL Quality Measures Quality Measures none Advance care planning discussed with:: patient Medications Home Medications and Allergies Home Medications ?Medication ?Instructions ?Recorded ?Confirmed ?Type alprazolam 0.5 mg tablet 0.5 mg PO BID PRN Anxiety 04/20/25 History gabapentin 100 mg capsule 100 mg PO HS 10/14/21 History levothyroxine 25 mcg tablet 25 mcg PO QAM 10/14/21 History acetaminophen 325 mg tablet 650 mg PO Q6H PRN Pain 04/20/25 History amiodarone 200 mg tablet 200 mg PO QDAY 12/28/2104/05 History bisacodyl 10 mg rectal suppository 10 mg [place] Q24H PRN C onstipation 12/28/21 04/20/25 History (Dulcolax (bisacodyl)) esomeprazole magnesium 40 mg 40 mg PO QAM 12/28/21 History capsule,delayed release hydrocodone 5 mg-acetaminophen 325 1 tab PO Q6H PRN Pa in 12/30/21 04/20/25 History mg tablet furosemide 20 mg tablet 1 tab PO QDAY 06/06/2204/20 History magnesium hydroxide 400 mg/5 mL 5 ml PO Q48H PRN Const ipation 08/12/22 04/20/25 History oral suspension (Milk of Magnesia) metoprolol succinate 100 mg 100 mg PO QDAY 05/26/24 History tablet,extended release 24 hr (Toprol XL) aluminum-mag hydroxide-simethicone 5 ml PO Q12H PRN in digestion 04/20/25 04/20/25 History 200 mg-200 mg-20 mg/5 mL oral susp (Advanced Antacid-Antigas) apixaban 5 mg tablet (Eliquis) 5 mg PO Q12H 04/20/25 0 04/20/25 History melatonin 3 mg capsule 3 mg PO HS 04/20/25 04/20/25 History multivitamin (Multiple Vitamins 1 tab PO QDAY 04/20/25 04/20/25 History tablet) ondansetron HCl 4 mg tablet 4 mg PO Q8H PRN nausea and vomiting 04/20/25 04/20/25 History sertraline 25 mg tablet 50 mg PO QDAY 04/20/2504/20 History ursodiol 250 mg tablet 250 mg PO Q12H 04/20/2504/05 History Allergies Allergy/AdvReac Type Severity Reaction Status Date / Time No Known Allergies Allergy Verified 05/26/24 09:43 Visit Medications Acetaminophen (Acetaminophen 325 Mg Tablet) 650 mg PO Q6H PRN PRN Reason: mild pain 1-3 or Fever >100.3 Stop: 05/20/25 02:28 Alprazolam (Alprazolam 0.25 Mg Tablet) 0.5 mg PO BID PRN PRN Reason: ANXIETY Stop: 04/25/25 16:28 Amiodarone HCl (Amiodarone Hcl 200 Mg Tablet) 200 mg PO QDAY [facility] Stop: 05/20/25 08:59 Last Admin: 04/20/25 09:40 Dose: 200 mg Apixaban (Apixaban 2.5 Mg Tablet) 5 mg PO BID [facility] Stop: 05/20/25 08:59 Last Admin: 04/20/25 20:19 Dose: 5 mg Famotidine (Famotidine 20 Mg Tablet) 20 mg PO BID [facility] Stop: 05/20/25 08:59 Last Admin: 04/20/25 20:19 Dose: 20 mg Furosemide (Furosemide Inj 10 Mg/Ml 4ml Vial) 40 mg IVP QDAY [facility] Stop: 05/20/25 08:59 Last Admin: 04/20/25 09:43 Dose: 40 mg Gabapentin (Gabapentin 100 Mg Capsule) 100 mg PO [facility] Stop: 05/20/25 02:39 Last Admin: 04/20/25 20:19 Dose: 100 mg Levothyroxine Sodium (Levothyroxine Sodium 25 Mcg Tablet) 25 mcg PO ACBR [facility] Stop: 05/20/25 05:59 Last Admin: 04/20/25 07:41 Dose: Not Given Lisinopril (Lisinopril 20 Mg Tablet) 20 mg PO QDAY [facility] Stop: 05/20/25 08:59 Last Admin: 04/20/25 09:38 Dose: 20 mg Melatonin (Melatonin 3 Mg Tablet) 3 mg PO [facility] Stop: 05/20/25 20:59 Last Admin: 04/20/25 20:19 Dose: 3 mg Metoprolol Succinate (Metoprolol Succinate Xl 25 Mg Tabcr) 100 mg PO QDAY [facility] Stop: 05/20/25 08:59 Last Admin: 04/20/25 09:41 Dose: 100 mg Ondansetron HCl (Ondansetron Inj 2 Mg/Ml Inj 2 Ml) 4 mg IVP Q6H PRN; Protocol PRN Reason: NAUSEA OR VOMITING Stop: 05/20/25 02:28 Sennosides (Senna Tablet) 1 tab PO QDAY [facility]; Protocol Stop: 05/20/25 08:59 Last Admin: 04/20/25 09:39 Dose: 1 tab Sertraline HCl (Sertraline Hcl 25 Mg Tablet) 50 mg PO [facility] Stop: 05/20/25 20:59 Last Admin: 04/20/25 20:19 Dose: 50 mg Discontinued Medications Furosemide (Furosemide Inj 10 Mg/Ml 4ml Vial) 40 mg IVP X1 ONE Stop: 04/19/25 17:01 Last Admin: 04/19/25 17:32 Dose: 40 mg Furosemide (Furosemide Inj 10 Mg/Ml 4ml Vial) 40 mg IVP X1 ONE Stop: 04/20/25 01:07 Last Admin: 04/20/25 01:36 Dose: 40 mg Heparin Sodium (Porcine) (Heparin Sod Inj 5000 Unit/Ml Vial) 5,000 unit SC Q12HR [facility] Stop: 05/04/25 08:59 Magnesium Sulfate (Magnesium Sulfate Ivpb) 4 gm in 50 mls @ 12.5 mls/hr IV X1 ONE Stop: 04/20/25 11:30 Last Admin: 04/20/25 09:52 Dose: 12.5 mls/hr Lisinopril (Lisinopril 20 Mg Tablet) 20 mg PO QDAY RICARDA Stop: 05/20/25 08:59 Assessment & Plan Plan This is an 80-year-old female with PMH of hypertension, atrial fibrillation on ELIQUIS, HFpEF EEF 60% from 04/2024, hypothyroidism, morbid obesity, IBS, depression, and anxiety who presented from her assisted living facility with worsening shortness of breath and pulmonary congestion on chest X-ray. 1. Acute CHF exacerbation 2. Hx HFpEF EEF 60% from 04/2024 3. Hx of fibrillation, rate controlled 4. Hypertension 5. Hypothyroidism 6. Anxiety disorder with possible panic attack 7. Prediabetes He is admitted for shortness of breath, with finding of pulmonary congestion on CXR x-ray. EKG showed atrial fibrillation, rate controlled, no acute ST changes. No pneumonia seen on chest x-ray. From 04/2024 was reviewed showing history of heart failure with preserved ejection fraction of 60%. She is on home LASIX 20 mg daily, reports compliance with medication. On evaluation, she had minimal lower extremity edema on exam. No crackles noted on lung exam. She reports history of anxiety, especially while laying flat, reports feeling like she is suffocating, and unable to breathe. Reports she really sleeps with her head elevated. IMPRESSION: Presentation likely multifactorial including most likely anxiety with panic attack. There may be a component of CHF exacerbation given chest x- ray finding and minimal lower extremity edema on exam, but less likely given minimal BNP elevation. Significant arrhythmia causing shortness of breath noted on EKG and normal troponin. RECOMMENDATIONS: Continued home LASIX, AMIODARONE, and ELIQUIS. She may be discharged home if symptoms improve with close cardiology follow-up for repeat echocardiogram. Recommended cardiac stratification. Maintain K>4.0 and Mag>2.0. Maintain euvolemic state with salt restriction and fluid restriction. Recommended treating anxiety as well. Case was discussed with attending physician, Dr. De Paz. Jose Swain, DO PGY II This document was transcribed using voice recognition technology. Minor inaccuracies may be present.
[2025-04-21] VITALS (11 sets, daily range): BP systolic 95–131; BP diastolic 50–69; PULSE 53–77; RESP 10–22; TEMP 36.1–36.5; O2SAT 62–100
[2025-04-21] MEDS: LEVOTHYROXINE SODIUM 25 MCG TABLET PO (05:03)
[2025-04-21 06:07] LABS: Base Excess, Venous 11 (-3-3); O2 Saturation, Venous 94 % (96-97); PCO2, Venous 58 mmHg (36-56); PO2, Venous 70 mmHg (15-58); pH, Venous 7.43 (7.33-7.66)
[2025-04-21 06:25] LABS: Basophils # (Auto) 0.0 Thou/mm3 (0.0-0.2); Basophils % (Auto) 1 % (0-2.5); Eosinophils # (Auto) 0.2 Thou/mm3 (0.0-0.5); Eosinophils % (Auto) 3 % (0-10); Hematocrit 39.1 % (36.0-46.0); Hemoglobin 12.2 g/dL (12.0-16.0); Immature Granulocytes Auto 0.01 Thou/mm3 (0.00-0.00); Lymphocytes # (Auto) 1.2 Thou/mm3 (1.0-4.8); Lymphocytes % (Auto) 17 % (10-50); Mean Corpuscular HGB Conc 31.2 g/dl (31.0-37.0); Mean Corpuscular Hemoglobin 29.3 pg (25.0-35.0); Mean Corpuscular Volume 94 fL (80-100); Monocytes # (Auto) 0.6 Thou/mm3 (0.0-0.8); Monocytes % (Auto) 9 % (0-12); Neutrophils # (Auto) 4.8 Thou/mm3 (1.8-7.7); Neutrophils % (Auto) 71 % (37-80); Nucleated Red Blood Cell # 0.00 Thou/mm3 (0.00-0.00); Nucleated Red Blood Cell % 0 /100 WBC (0); Platelet Count 223 Thou/mm3 (140-440); RDW Standard Deviation 53.3 fL (36.4-46.3); Red Blood Count 4.17 Miln/mm3 (4.00-5.20); White Blood Count 6.8 Thou/mm3 (3.6-11.0)
[2025-04-21 06:57] LABS: Alanine Aminotransferase 23 U/L (10-49); Albumin, Serum 3.2 gm/dL (3.4-4.8); Albumin/Globulin Ratio 1.2 (1.2-2.2); Alkaline Phosphatase 104 U/L (46-116); Anion Gap 7 (7-16); Aspartate Amino Transferase 50 U/L (0-34); BUN/Creatinine Ratio 17 Ratio (12-20); Bilirubin,Total 0.6 mg/dL (0.3-1.2); Blood Urea Nitrogen 12 mg/dL (9-23); Calcium 8.9 mg/dL (8.3-10.6); Calcium (Corrected) 9.5 mg/dL (8.5-10.1); Carbon Dioxide 35.6 mMol/L (20.0-31.0); Chloride 96 mMol/L (98-107); Creatinine (Component) 0.7 mg/dL (0.6-1.3); Estimated Creatinine Clearance 75.6 mL/min (>60); Globulin 2.6 gm/dL (2.3-3.5); Glucose 97 mg/dL (74-106); Magnesium 1.9 mg/dL (1.6-2.6); Osmolality,Calculated 277 (275-295); Phosphorous 3.5 mg/dL (2.4-5.1); Potassium 4.2 mMol/L (3.4-5.1); Sodium 139 mMol/L (136-145); Total Protein 5.8 gm/dL (5.7-8.2); eGFR > 60 See Note
[2025-04-21] MEDS: FUROSEMIDE INJ 10 MG/ML 4ML VIAL 40 MG IVP (08:21)
[2025-04-21] MEDS: FAMOTIDINE 20 MG TABLET PO ×2 (08:21→20:30)
[2025-04-21] MEDS: AMIODARONE HCL 200 MG TABLET PO (08:22)
[2025-04-21] MEDS: METOPROLOL SUCCINATE XL 25 MG TABCR 100 MG PO (08:22)
[2025-04-21] MEDS: APIXABAN 2.5 MG TABLET 5 MG PO ×2 (08:23→20:30)
--- NOTE | 2025-04-21 12:05 | PC.SS ---
Yin Chin is a 80 year old female admitted to [facility] for SOB. SS conducted over the phone contact with pt dtr and surrogate decision maker Reyna Chin [phone]. Reyna reports pt is a long-term resident of [facility] has been there for over 1 year. Pt is a max assist and requires full assistance. DC plan will be for her to return to [facility], she will need transport. SS will remain available for any additional needs or concerns. DC plan: [facility] M[facility] DM: Dtr Reyna
--- NOTE | 2025-04-21 13:15 | ESPR_ITS ---
Documentation for date of: 04/21/25 Subjective Subjective Interval history: Patient examined at bedside today. No acute overnight events. Patient reports her shortness of breath is improved. Patient wondering when she can go home. She denies using CPAP at home. She denies any chest pain at this time. No other complaints at this time. Exam Vital Signs Temp Pulse Resp BP Pulse Ox O2 Del Method O2 Flow Rate 97.1 F 61 18 100/57 L 98 Nasal Cannula 2 04/21/25 12:00 04/21/25 12:00 04/21/25 12:00 04/21/25 12:00 04/21/25 12:00 04/21/25 12:00 04/21/25 12:00 Narrative Exam General: AAOx3, NAD, morbidly obese HEENT: Moist mucous membranes, conjunctiva clear, EOMI, PERRLA, poor dentition Cardiovascular: S1, S2, radial pulses +2 bilat, RRR Pulmonary: Crackles present diffusely, no cough, no wheezing GI: No tenderness to light or deep palpitation, no guarding, rigidity, rebound tenderness or distension Extremities: Anasarca present going to proximal LE bilat Neuro: AAOx3, no focal motor or sensory deficits in the UE or LE bilat Psych: Good judgement, thought and behavior Objective Labs 04/23/25 04:42 04/23/25 04:42 Labs: Laboratory Results - last 24 hr 04/21/25 04:34 WBC 6.8 RBC 4.17 Hgb 12.2 Hct 39.1 MCV 94 MCH 29.3 MCHC 31.2 RDW Std Deviation 53.3 H Plt Count 223 Neut % (Auto) 71 Lymph % (Auto) 17 [place] % (Auto) 9 Eos % (Auto) 3 Baso % (Auto) 1 Neut # (Auto) 4.8 Lymph # (Auto) 1.2 [place] # (Auto) 0.6 Eos # (Auto) 0.2 Baso # (Auto) 0.0 Immature Gran # (Auto) 0.01 H Absolute Nucleated RBC 0.00 Immature Gran % 0 Nucleated RBC % 0 VBG pH 7.43 VBG pCO2 58 H VBG pO2 70 H VBG O2 Sat (Justin) 94 L VBG Base Excess 11 H Sodium 139 Potassium 4.2 Chloride 96 L Carbon Dioxide 35.6 H Anion Gap 7 BUN 12 Creatinine 0.7 Estim Creat Clear Calc 75.6 eGFR > 60 BUN/Creatinine Ratio 17 Glucose 97 Calculated Osmolality 277 Calcium 8.9 Corrected Calcium 9.5 Phosphorus 3.5 Magnesium 1.9 Total Bilirubin 0.6 AST 50 H ALT 23 Alkaline Phosphatase 104 Total Protein 5.8 Albumin 3.2 L Globulin 2.6 Albumin/Globulin Ratio 1.2 ABG Interpretation ABG results: 04/21/25 04:34 VBG pH 7.43 VBG pCO2 58 H VBG pO2 70 H VBG Base Excess 11 H Quality Measures Quality Measures none Advance care planning discussed with:: patient Assessment & Plan Assessment Current Active Medications: Generic Name Dose Route Start Last Admin Trade Name Freq PRN Reason Stop Dose Admin Acetaminophen 650 mg 04/20/25 02:29 Acetaminophen 325 Mg Tablet PO 05/20/25 02:28 Q6H PRN mild pain 1-3 or Fever >100.3 Alprazolam 0.5 mg 04/20/25 16:29 Alprazolam 0.25 Mg Tablet PO 04/25/25 16:28 BID PRN ANXIETY Amiodarone HCl 200 mg 04/20/25 09:00 04/21/25 08:22 Amiodarone Hcl 200 Mg Tablet PO 05/20/25 08:59 200 mg QDAY RICARDA Administration Apixaban 5 mg 04/20/25 09:00 04/21/25 08:23 Apixaban 2.5 Mg Tablet PO 05/20/25 08:59 5 mg BID RICARDA Administration Famotidine 20 mg 04/20/25 09:00 04/21/25 08:21 Famotidine 20 Mg Tablet PO 05/20/25 08:59 20 mg BID RICARDA Administration Furosemide 40 mg 04/20/25 09:00 04/21/25 08:21 Furosemide Inj 10 Mg/Ml 4ml Vial IVP 05/20/25 08:59 40 mg QDAY RICARDA Administration Gabapentin 100 mg 04/20/25 02:40 04/20/25 20:19 Gabapentin 100 Mg Capsule PO 05/20/25 02:39 100 mg HS RICARDA Administration Levothyroxine Sodium 25 mcg 04/20/25 06:00 04/21/25 05:03 Levothyroxine Sodium 25 Mcg Tablet PO 05/20/25 05:59 25 mcg ACBR RICARDA Administration Lisinopril 20 mg 04/20/25 09:00 04/21/25 08:22 Lisinopril 20 Mg Tablet PO 05/20/25 08:59 20 mg QDAY RICARDA Administration Melatonin 3 mg 04/20/25 21:00 04/20/25 20:19 Melatonin 3 Mg Tablet PO 05/20/25 20:59 3 mg HS RICARDA Administration Metoprolol Succinate 100 mg 04/20/25 09:00 04/21/25 08:22 Metoprolol Succinate Xl 25 Mg Tabcr PO 05/20/25 08:59 100 mg QDAY RICARDA Administration Ondansetron HCl 4 mg 04/20/25 02:29 Ondansetron Inj 2 Mg/Ml Inj 2 Ml IVP 05/20/25 02:28 Q6H PRN NAUSEA OR VOMITING Protocol Sennosides 1 tab 04/20/25 09:00 04/21/25 08:21 Senna Tablet PO 05/20/25 08:59 1 tab QDAY RICARDA Administration Protocol Sertraline HCl 50 mg 04/20/25 21:00 04/20/25 20:19 Sertraline Hcl 25 Mg Tablet PO 05/20/25 20:59 50 mg HS RICARDA Administration Plan Assessment Yin is an 80-year-old female with a past medical history of hypertension, atrial fibrillation on Eliquis, CHF HFrEF 35 to 44% (422), hypothyroidism, morbid obesity, IBS, Depression, Anxiety who was admtited for acute hypoxic respiratory failure and acute on chronic CHF exacerbation. #Acute on chronic Hypoxic Respiratory Failure, improving, secondary to #Acute on chronic CHF exacerbation #CHF HFrEF 35 to 44% (4/) Patient presented with worsening lower peripheral edema, orthopnea, PND, and pulmonary vascular congestion noted on Cxr. BNP 237 likely CHF exacerbation vs PE less likely given Well Criteria of 1.5 and patient already on anticoagulated given Eliquis for Afib vs pneumonia unlikely as no pyrexia or leukocytosis Net fluid balance: -300 mL Will continue with IV diuresis at this time Plan: ? Cardiology consulted, appreciate recommendations ? Lasix 40 mg IV daily ? Continue home metoprolol XL 100 mg ? Echo ? K>4 and Mg >2 ? Fluid Restriction 1800 and Sodium Restriction 2 g per day ? SpO <90%, support PRN ? Daily Weights ? GDMT as tolerated #? Hx of SALAS/OHS #? Chronic respiratory acidosis with appropriate Metabolic alkalosis #? Contraction alkalosis Pt appears to be slightly alkalotic, may represent chronic metabolic compensation However, pt could be having contraction alkalosis at the same time Pt denies using CPAP Also spoke with family who denies pt using CPAP Plan: ? biPAP Hs #Chronic Atrial Fibrillation, rate controlled [id number] HAS-BLED: 3 Rate: Regular Rhythm: Controlled AC: Eliquis Patient could possibly on Xarelto due to weight being 118 kg however is on Eliquis Plan: ? Continue home Amio 200 mg every day ? Continue home metoprolol XL 100 mg by mouth every day ? Continue Eliquis 5 mg by mouth twice daily ? Telemetry ? Keep magnesium and potassium above 2 and 4 respectively #Hypertension #Prediabetes Chronic HTN A1c 5.9 Plan: ? Continued home lisinopril 20 mg PO Qday #Hypothyroidism TSH 4 Plan: ? Continue home 25 mcg AC MS levothyroxine #History of anxiety Chronic Plan: ? Continue home Zoloft 50 mg #Health Maintenance Disposition: Telemetry DVT prophylaxis: Eliquis GI prophylaxis: Protonix Diet: Cardiac CODE STATUS: Full Patient seen and care discussed with my attending physician, Dr. Quincy Stevens, PGY-2 Attending Provider Attestation/Addendum Patient seen and examined at bedside with resident. Agree with assessment and plan as dictated above. Plan for 1-2 more days of diuresis and monitoring of MIHIR and metabolic alkalosis. Santy Mathew MD
[2025-04-21] MEDS: SERTRALINE HCL 25 MG TABLET 50 MG PO (20:30)
[2025-04-21] MEDS: MELATONIN 3 MG TABLET PO (20:30)
[2025-04-21] MEDS: GABAPENTIN 100 MG CAPSULE PO (20:30)
--- NOTE | 2025-04-21 21:26 | PC.NURSE ---
RT Hernandes called regarding CPAP for tonight.
[2025-04-22] VITALS (15 sets, daily range): BP systolic 103–164; BP diastolic 53–90; PULSE 36–84; RESP 10–99; TEMP 36.3–36.6; O2SAT 95–100
--- NOTE | 2025-04-22 00:50 | ESPR_ITS ---
RE: NOE AUSTIN : 1945 DATE OF SERVICE: 04/21/2025 SUBJECTIVE: The patient was seen for cardiovascular assessment, admitted to the hospital with shortness of breath, possible congestive heart failure, atrial fibrillation, on Eliquis, angiogram, further ejection fraction, a lot of anxiety causing shortness of breath. Did not think much of heart failure. Clinically, she appears to have mild congestion, but not having any chest pain or shortness of breath. Recent echo showed ejection fraction of 60% in 04/2024. She also has had HFpEF with atrial fibrillation, hypertension, hypothyroidism, negative angiogram. Mostly has anxiety and panic attacks. She is feeling a lot better now. Not having chest pain or shortness of breath. PHYSICAL EXAMINATION: Vital Signs: Shows blood pressure 100/57, pulse rate is 60, respiratory rate 18, and temperature normal. Neck: Supple. No JVD. Chest: Symmetrical. Lungs: Decreased breath sounds. No rales or rhonchi. Heart: S1 and S2 irregular. S4 gallop heard. Abdomen: Thin and soft. Extremities: No edema. IMPRESSION: 1. Acute on chronic hypoxic respiratory failure. 2. Heart failure with preserved ejection and congestive heart failure, improved. 3. Last ejection fraction was 60% in 2023. 4. Obstructive sleep apnea. 5. Obesity. 6. Chronic atrial fibrillation, on Eliquis. CHADS-VASc score is 5. RECOMMENDATIONS: Continue medical management including amiodarone and metoprolol and no need for any further cardiac workup. She did have coronary angiogram performed by me few years ago in 2020. Coronary angiogram showed nonobstructive coronary artery disease. DT: 23:39:14 TT: 00:38:00 Ref: [id number] - TID: [id number]
[2025-04-22] MEDS: LEVOTHYROXINE SODIUM 25 MCG TABLET PO (05:08)
[2025-04-22 06:14] LABS: Basophils # (Auto) 0.0 Thou/mm3 (0.0-0.2); Basophils % (Auto) 1 % (0-2.5); Eosinophils # (Auto) 0.2 Thou/mm3 (0.0-0.5); Eosinophils % (Auto) 2 % (0-10); Hematocrit 41.4 % (36.0-46.0); Hemoglobin 12.8 g/dL (12.0-16.0); Immature Granulocytes Auto 0.01 Thou/mm3 (0.00-0.00); Lymphocytes # (Auto) 1.4 Thou/mm3 (1.0-4.8); Lymphocytes % (Auto) 20 % (10-50); Mean Corpuscular HGB Conc 30.9 g/dl (31.0-37.0); Mean Corpuscular Hemoglobin 29.0 pg (25.0-35.0); Mean Corpuscular Volume 94 fL (80-100); Monocytes # (Auto) 0.6 Thou/mm3 (0.0-0.8); Monocytes % (Auto) 10 % (0-12); Neutrophils # (Auto) 4.6 Thou/mm3 (1.8-7.7); Neutrophils % (Auto) 67 % (37-80); Nucleated Red Blood Cell # 0.00 Thou/mm3 (0.00-0.00); Nucleated Red Blood Cell % 0 /100 WBC (0); Platelet Count 220 Thou/mm3 (140-440); RDW Standard Deviation 52.8 fL (36.4-46.3); Red Blood Count 4.41 Miln/mm3 (4.00-5.20); White Blood Count 6.8 Thou/mm3 (3.6-11.0)
[2025-04-22 06:59] LABS: Alanine Aminotransferase 22 U/L (10-49); Albumin, Serum 3.5 gm/dL (3.4-4.8); Albumin/Globulin Ratio 1.1 (1.2-2.2); Alkaline Phosphatase 111 U/L (46-116); Anion Gap 8 (7-16); Aspartate Amino Transferase 51 U/L (0-34); BUN/Creatinine Ratio 13 Ratio (12-20); Bilirubin,Total 0.6 mg/dL (0.3-1.2); Blood Urea Nitrogen 10 mg/dL (9-23); Calcium 9.1 mg/dL (8.3-10.6); Calcium (Corrected) 9.5 mg/dL (8.5-10.1); Carbon Dioxide 33.6 mMol/L (20.0-31.0); Chloride 95 mMol/L (98-107); Creatinine (Component) 0.8 mg/dL (0.6-1.3); Estimated Creatinine Clearance 66.1 mL/min (>60); Globulin 3.1 gm/dL (2.3-3.5); Glucose 98 mg/dL (74-106); Magnesium 2.0 mg/dL (1.6-2.6); Osmolality,Calculated 272 (275-295); Phosphorous 3.6 mg/dL (2.4-5.1); Potassium 4.2 mMol/L (3.4-5.1); Sodium 137 mMol/L (136-145); Total Protein 6.6 gm/dL (5.7-8.2); eGFR > 60 See Note
[2025-04-22 07:19] LABS: B-Type Natriuretic Peptide 199 pg/mL (0-100)
[2025-04-22] MEDS: AMIODARONE HCL 200 MG TABLET PO (09:25)
[2025-04-22] MEDS: FAMOTIDINE 20 MG TABLET PO ×2 (09:26→20:45)
[2025-04-22] MEDS: APIXABAN 2.5 MG TABLET 5 MG PO ×2 (09:26→20:45)
[2025-04-22] MEDS: METOPROLOL SUCCINATE XL 25 MG TABCR 100 MG PO (09:26)
[2025-04-22] MEDS: FUROSEMIDE INJ 10 MG/ML 4ML VIAL 40 MG IVP ×2 (09:27→11:56)
--- NOTE | 2025-04-22 11:19 | EKG_ITS ---
[facility] Test Date: 2025-04-22 Pat Name: NOE AUSTIN [facility] Passenger Car Inspector: MADISYN : 1945 Requested By: Zac Stevens Order Number: [id number] Reading MD: Zac Stevens Measurements Intervals [place] Rate: 46 P: [place]: QRS: -15 QRSD: 82 T: 45 QT: 354 QTc: 312 Interpretive Statements ATRIAL FIBRILLATION WITH SLOW VENTRICULAR RESPONSE ABNORMAL RHYTHM ECG Compared to ECG 04/20/2025 15:33:40 No significant changes /store/S0/[id number]
--- NOTE | 2025-04-22 14:47 | PC.SS ---
Rounding note: patient heart rate dropped, d/c tomorrow. JAMESON made Amee at [facility] aware.
--- NOTE | 2025-04-22 18:09 | ESPR_ITS ---
<Statement entered by Zac Stevens MD - 04/23/25 20:06> I have reviewed the note and agree with the resident's assessment & plan with exceptions as below. I have personally reviewed labs, imaging, home meds/prior records, examined the patient, formulated and discussed management plan with the IM team. Pt examined at bedside today. Pt currently on 1L NC, however, pt is not net negative for fluid balance. Will continue with IV diuresis at this time, cardiology on consult, appreciate recommendations. Repeat hematology and chemistry in AM. Zac Stevens, PGY-2 Internal Medicine Documentation for date of: 04/22/25 Subjective Subjective Interval history: No acute events overnight. Patient seen and examined at bedside. Vitals and labs reviewed. Patient states that her breathing is still doing well/improved. Patient denies any complaints/concerns. Patient denies fever, chest pain, shortness of breath Exam Vital Signs Temp Pulse Resp BP Pulse Ox O2 Del Method O2 Flow Rate 97.3 F 58 L 16 111/58 L 96 Nasal Cannula 1 04/22/25 16:00 04/22/25 16:00 04/22/25 16:00 04/22/25 16:00 04/22/25 16:00 04/22/25 16:00 04/22/25 16:00 FiO2 30 04/22/25 02:37 Narrative Exam General: no acute distress, A&Ox3 HEENT: Moist mucous membranes, conjunctiva clear, EOMI, PERRLA, poor dentition Cardiovascular: S1, S2, radial pulses +2 bilat, RRR Pulmonary: Crackles present diffusely, no cough, no wheezing GI: No tenderness to light or deep palpitation, no guarding, rigidity, rebound tenderness or distension Extremities: Anasarca present going to proximal LE bilat Neuro: no focal motor or sensory deficits in the UE or LE bilat Psych: Good judgement, thought and behavior Objective Labs 04/23/25 04:42 04/23/25 04:42 Labs: Laboratory Results - last 24 hr 04/22/25 05:22 WBC 6.8 RBC 4.41 Hgb 12.8 Hct 41.4 MCV 94 MCH 29.0 MCHC 30.9 L RDW Std Deviation 52.8 H Plt Count 220 Neut % (Auto) 67 Lymph % (Auto) 20 [place] % (Auto) 10 Eos % (Auto) 2 Baso % (Auto) 1 Neut # (Auto) 4.6 Lymph # (Auto) 1.4 [place] # (Auto) 0.6 Eos # (Auto) 0.2 Baso # (Auto) 0.0 Immature Gran # (Auto) 0.01 H Absolute Nucleated RBC 0.00 Immature Gran % 0 Nucleated RBC % 0 Sodium 137 Potassium 4.2 Chloride 95 L Carbon Dioxide 33.6 H Anion Gap 8 BUN 10 Creatinine 0.8 Estim Creat Clear Calc 66.1 eGFR > 60 BUN/Creatinine Ratio 13 Glucose 98 Calculated Osmolality 272 L Calcium 9.1 Corrected Calcium 9.5 Phosphorus 3.6 Magnesium 2.0 Total Bilirubin 0.6 AST 51 H ALT 22 Alkaline Phosphatase 111 B-Natriuretic Peptide 199 H Total Protein 6.6 Albumin 3.5 Globulin 3.1 Albumin/Globulin Ratio 1.1 L ABG Interpretation ABG results: 04/21/25 04:34 VBG pH 7.43 VBG pCO2 58 H VBG pO2 70 H VBG Base Excess 11 H Quality Measures Quality Measures none Advance care planning discussed with:: patient Assessment & Plan Assessment Current Active Medications: Generic Name Dose Route Start Last Admin Trade Name Freq PRN Reason Stop Dose Admin Acetaminophen 650 mg 04/20/25 02:29 Acetaminophen 325 Mg Tablet PO 05/20/25 02:28 Q6H PRN mild pain 1-3 or Fever >100.3 Alprazolam 0.5 mg 04/20/25 16:29 04/22/25 09:30 Alprazolam 0.25 Mg Tablet PO 04/25/25 16:28 0.5 mg BID PRN Administration ANXIETY Amiodarone HCl 200 mg 04/20/25 09:00 04/22/25 09:25 Amiodarone Hcl 200 Mg Tablet PO 05/20/25 08:59 200 mg QDAY RICARDA Administration Apixaban 5 mg 04/20/25 09:00 04/22/25 09:26 Apixaban 2.5 Mg Tablet PO 05/20/25 08:59 5 mg BID RICARDA Administration Famotidine 20 mg 04/20/25 09:00 04/22/25 09:26 Famotidine 20 Mg Tablet PO 05/20/25 08:59 20 mg BID RICARDA Administration Furosemide 40 mg 04/20/25 09:00 04/22/25 09:27 Furosemide Inj 10 Mg/Ml 4ml Vial IVP 05/20/25 08:59 40 mg QDAY RICARDA Administration Gabapentin 100 mg 04/20/25 02:40 04/21/25 20:30 Gabapentin 100 Mg Capsule PO 05/20/25 02:39 100 mg HS RICARDA Administration Levothyroxine Sodium 25 mcg 04/20/25 06:00 04/22/25 05:08 Levothyroxine Sodium 25 Mcg Tablet PO 05/20/25 05:59 25 mcg ACBR RICARDA Administration Lisinopril 40 mg 04/23/25 09:00 Lisinopril 20 Mg Tablet PO 05/23/25 08:59 QDAY RICARDA Melatonin 3 mg 04/20/25 21:00 04/21/25 20:30 Melatonin 3 Mg Tablet PO 05/20/25 20:59 3 mg HS RICARDA Administration Metoprolol Succinate 100 mg 04/20/25 09:00 04/22/25 09:26 Metoprolol Succinate Xl 25 Mg Tabcr PO 05/20/25 08:59 100 mg QDAY RICARDA Administration Ondansetron HCl 4 mg 04/20/25 02:29 Ondansetron Inj 2 Mg/Ml Inj 2 Ml IVP 05/20/25 02:28 Q6H PRN NAUSEA OR VOMITING Protocol Sennosides 1 tab 04/20/25 09:00 04/22/25 09:26 Senna Tablet PO 05/20/25 08:59 1 tab QDAY RICARDA Administration Protocol Sertraline HCl 50 mg 04/20/25 21:00 04/21/25 20:30 Sertraline Hcl 25 Mg Tablet PO 05/20/25 20:59 50 mg HS RICARDA Administration Plan Yin is an 80-year-old female with a past medical history of hypertension, atrial fibrillation on Eliquis, CHF HFrEF 35 to 44% (12/25), hypothyroidism, morbid obesity, IBS, Depression, Anxiety who was admitted for acute hypoxic respiratory failure and acute on chronic CHF exacerbation. #Acute on chronic Hypoxic Respiratory Failure, improving, secondary to #Acute on chronic CHF exacerbation #CHF HFrEF 35 to 44% (12/25) Patient presented with worsening lower peripheral edema, orthopnea, PND, and pulmonary vascular congestion noted on Cxr. BNP 237 likely CHF exacerbation vs PE less likely given Well Criteria of 1.5 and patient already on anticoagulated given Eliquis for Afib vs pneumonia unlikely as no pyrexia or leukocytosis Net fluid balance: +360 mL Will continue with IV diuresis at this time Plan: ? Cardiology consulted, appreciate recommendations ? Lasix 40 mg IV daily ? Continue home metoprolol XL 100 mg ? Echo Pending ? K>4 and Mg >2 ? Fluid Restriction 1800 and Sodium Restriction 2 g per day ? SpO <90%, support PRN ? Daily Weights ? GDMT as tolerated #? Hx of SALAS/OHS #? Chronic respiratory acidosis with appropriate Metabolic alkalosis #? Contraction alkalosis Pt appears to be slightly alkalotic, may represent chronic metabolic compensation However, pt could be having contraction alkalosis at the same time Pt denies using CPAP Also spoke with family who denies pt using CPAP Plan: ? biPAP Hs #Chronic Atrial Fibrillation, rate controlled [id number] HAS-BLED: 3 Rate: Regular Rhythm: Controlled AC: Eliquis Patient could possibly on Xarelto due to weight being 118 kg however is on Eliquis Plan: ? Continue home Amio 200 mg every day ? Continue home metoprolol XL 100 mg by mouth every day ? Continue Eliquis 5 mg by mouth twice daily ? Telemetry ? Keep magnesium and potassium above 2 and 4 respectively #Hypertension #Prediabetes Chronic HTN; home lisinopril 20 mg A1c 5.9 Plan: ? Increasing lisinopril to 40 mg PO Qday #Hypothyroidism TSH 4 Plan: ? Continue home 25 mcg AC MD levothyroxine #History of anxiety Chronic Plan: ? Continue home Zoloft 50 mg #Health Maintenance Disposition: Telemetry DVT prophylaxis: Eliquis GI prophylaxis: Protonix Diet: Cardiac CODE STATUS: Full Patient plan of care was discussed with the attending physician, Dr. Bonilla & senior resident Dr. Hilda Palmer MD PGY-1 Attending Provider Attestation/Addendum I have examined the patient, reviewed labs and imaging findings, discussed the case with the resident(s), and reviewed entered orders. I agree with the plan of care as outlined in this note, with these additional summaries/recommendations: Patient seen at bedside. No acute overnight events. Continue supplemental oxygen for acute on chronic CHF exacerbation. Repeat echocardiogram ordered and pending. Last echocardiogram in 2021 showed ejection fraction of 35 to 45%. We will continue diuresis and optimize goal-directed medical therapy as tolerated. Continue amiodarone and metoprolol for chronic atrial fibrillation plus patient's home NOAC. Continue insulin sliding scale for diabetes mellitus type 2. Anticipate discharge in the next 24 to 48 hours. Please see residents note for additional details and management. Dr. Irene MD
[2025-04-22] MEDS: SERTRALINE HCL 25 MG TABLET 50 MG PO (20:44)
[2025-04-22] MEDS: GABAPENTIN 100 MG CAPSULE PO (20:45)
[2025-04-22] MEDS: MELATONIN 3 MG TABLET PO (20:45)
[2025-04-23] VITALS (10 sets, daily range): BP systolic 94–138; BP diastolic 49–65; PULSE 54–67; RESP 12–99; TEMP 36–36.1; O2SAT 90–99; BMI 47.7
[2025-04-23] MEDS: LEVOTHYROXINE SODIUM 25 MCG TABLET PO (05:33)
[2025-04-23 05:40] LABS: Basophils # (Auto) 0.0 Thou/mm3 (0.0-0.2); Basophils % (Auto) 1 % (0-2.5); Eosinophils # (Auto) 0.2 Thou/mm3 (0.0-0.5); Eosinophils % (Auto) 3 % (0-10); Hematocrit 37.8 % (36.0-46.0); Hemoglobin 11.9 g/dL (12.0-16.0); Immature Granulocytes Auto 0.02 Thou/mm3 (0.00-0.00); Lymphocytes # (Auto) 1.1 Thou/mm3 (1.0-4.8); Lymphocytes % (Auto) 17 % (10-50); Mean Corpuscular HGB Conc 31.5 g/dl (31.0-37.0); Mean Corpuscular Hemoglobin 29.5 pg (25.0-35.0); Mean Corpuscular Volume 94 fL (80-100); Monocytes # (Auto) 0.6 Thou/mm3 (0.0-0.8); Monocytes % (Auto) 9 % (0-12); Neutrophils # (Auto) 4.6 Thou/mm3 (1.8-7.7); Neutrophils % (Auto) 70 % (37-80); Nucleated Red Blood Cell # 0.00 Thou/mm3 (0.00-0.00); Nucleated Red Blood Cell % 0 /100 WBC (0); Platelet Count 210 Thou/mm3 (140-440); RDW Standard Deviation 52.9 fL (36.4-46.3); Red Blood Count 4.03 Miln/mm3 (4.00-5.20); White Blood Count 6.6 Thou/mm3 (3.6-11.0)
[2025-04-23 06:04] LABS: Alanine Aminotransferase 21 U/L (10-49); Albumin, Serum 3.2 gm/dL (3.4-4.8); Albumin/Globulin Ratio 1.1 (1.2-2.2); Alkaline Phosphatase 106 U/L (46-116); Anion Gap 6 (7-16); Aspartate Amino Transferase 46 U/L (0-34); BUN/Creatinine Ratio 18 Ratio (12-20); Bilirubin,Total 0.5 mg/dL (0.3-1.2); Blood Urea Nitrogen 16 mg/dL (9-23); Calcium 9.0 mg/dL (8.3-10.6); Calcium (Corrected) 9.6 mg/dL (8.5-10.1); Carbon Dioxide 38.5 mMol/L (20.0-31.0); Chloride 96 mMol/L (98-107); Creatinine (Component) 0.9 mg/dL (0.6-1.3); Estimated Creatinine Clearance 58.8 mL/min (>60); Globulin 2.8 gm/dL (2.3-3.5); Glucose 100 mg/dL (74-106); Magnesium 1.6 mg/dL (1.6-2.6); Osmolality,Calculated 280 (275-295); Phosphorous 3.8 mg/dL (2.4-5.1); Potassium 4.2 mMol/L (3.4-5.1); Sodium 140 mMol/L (136-145); Total Protein 6.0 gm/dL (5.7-8.2); eGFR > 60 See Note
--- NOTE | 2025-04-23 08:40 | CHAP ---
Patient was visited by a Spiritual Care Volunteer 0n 04/22/2025 between 1000 and 1100 and received comfort, encouragement and/or prayer.
[2025-04-23] MEDS: APIXABAN 2.5 MG TABLET 5 MG PO ×2 (08:46→20:32)
[2025-04-23] MEDS: AMIODARONE HCL 200 MG TABLET PO (08:46)
[2025-04-23] MEDS: FAMOTIDINE 20 MG TABLET PO ×2 (08:46→20:32)
[2025-04-23] MEDS: FUROSEMIDE INJ 10 MG/ML 4ML VIAL 40 MG IVP ×2 (08:47→17:10)
--- NOTE | 2025-04-23 12:52 | PC.SS ---
SS update: patient is pending echo, d/c in one more day. CATERING DRIVER notified Amee at [facility].
[2025-04-23] MEDS: ACETAzolaMIDE SOD 500 MG in SODIUM CHLORIDE 0.9% (Popper) 50 ML 100 MG IV (13:25)
--- NOTE | 2025-04-23 13:29 | ESPR_ITS ---
<Statement entered by Oswald Linn MD - 04/23/25 20:04> Patient was seen and examined at bedside. She is still on 1 L of oxygen, and her O2 saturation dropped significantly to 88 When we stop the oxygen. For that reason we will increase the Lasix to 40 twice daily, will follow-up on the echo to determine whether the patient will need further diuresis and also whether the patient will need goal-directed medical therapy on discharge. - Patient's plan and care discussed with my attending, Dr. Alton Linn MD Internal Medicine PGY-3 Documentation for date of: 04/23/25 Subjective Subjective Interval history: No acute events overnight. Patient seen and examined at bedside. Vitals and labs reviewed. Patient states that her breathing is doing much better, saturating well now on 1L O2 NC. Patient denies any complaints/concerns. Patient denies fever, chest pain, shortness of breath Exam Vital Signs Temp Pulse Resp BP Pulse Ox O2 Del Method O2 Flow Rate 96.8 F 67 12 108/50 L 90 L Room Air 1 04/23/25 12:00 04/23/25 12:00 04/23/25 12:00 04/23/25 12:00 04/23/25 12:00 04/23/25 12:00 04/23/25 08:00 FiO2 30 04/22/25 02:37 Narrative Exam General: no acute distress, A&Ox3 HEENT: Moist mucous membranes, conjunctiva clear, EOMI, PERRLA, poor dentition Cardiovascular: S1, S2, radial pulses +2 bilat, RRR Pulmonary: Minimal crackles present, no cough, no wheezing GI: No tenderness to light or deep palpitation, no guarding, rigidity, rebound tenderness or distension Extremities: LE 1/2+ edema; Anasarca present going to proximal LE bilat; Neuro: no focal motor or sensory deficits in the UE or LE bilat Psych: Good judgement, thought and behavior Objective Labs 04/24/25 05:51 04/24/25 05:51 Labs: Laboratory Results - last 24 hr 04/23/25 04:42 WBC 6.6 RBC 4.03 Hgb 11.9 L Hct 37.8 MCV 94 MCH 29.5 MCHC 31.5 RDW Std Deviation 52.9 H Plt Count 210 Neut % (Auto) 70 Lymph % (Auto) 17 [place] % (Auto) 9 Eos % (Auto) 3 Baso % (Auto) 1 Neut # (Auto) 4.6 Lymph # (Auto) 1.1 [place] # (Auto) 0.6 Eos # (Auto) 0.2 Baso # (Auto) 0.0 Immature Gran # (Auto) 0.02 H Absolute Nucleated RBC 0.00 Immature Gran % 0 Nucleated RBC % 0 Sodium 140 Potassium 4.2 Chloride 96 L Carbon Dioxide 38.5 H Anion Gap 6 L BUN 16 Creatinine 0.9 Estim Creat Clear Calc 58.8 L eGFR > 60 BUN/Creatinine Ratio 18 Glucose 100 Calculated Osmolality 280 Calcium 9.0 Corrected Calcium 9.6 Phosphorus 3.8 Magnesium 1.6 Total Bilirubin 0.5 AST 46 H ALT 21 Alkaline Phosphatase 106 Total Protein 6.0 Albumin 3.2 L Globulin 2.8 Albumin/Globulin Ratio 1.1 L ABG Interpretation ABG results: 04/21/25 04:34 VBG pH 7.43 VBG pCO2 58 H VBG pO2 70 H VBG Base Excess 11 H Quality Measures Quality Measures VTE prophylaxis Advance care planning discussed with:: patient Assessment & Plan Assessment Current Active Medications: Generic Name Dose Route Start Last Admin Trade Name Freq PRN Reason Stop Dose Admin Acetaminophen 650 mg 04/20/25 02:29 Acetaminophen 325 Mg Tablet PO 05/20/25 02:28 Q6H PRN mild pain 1-3 or Fever >100.3 Alprazolam 0.5 mg 04/20/25 16:29 04/22/25 09:30 Alprazolam 0.25 Mg Tablet PO 04/25/25 16:28 0.5 mg BID PRN Administration ANXIETY Amiodarone HCl 200 mg 04/20/25 09:00 04/23/25 08:46 Amiodarone Hcl 200 Mg Tablet PO 05/20/25 08:59 200 mg QDAY RICARDA Administration Apixaban 5 mg 04/20/25 09:00 04/23/25 08:46 Apixaban 2.5 Mg Tablet PO 05/20/25 08:59 5 mg BID RICARDA Administration Famotidine 20 mg 04/20/25 09:00 04/23/25 08:46 Famotidine 20 Mg Tablet PO 05/20/25 08:59 20 mg BID RICARDA Administration Furosemide 40 mg 04/23/25 18:00 Furosemide Inj 10 Mg/Ml 4ml Vial IVP 05/23/25 17:59 BIDD RICARDA Gabapentin 100 mg 04/20/25 02:40 04/22/25 20:45 Gabapentin 100 Mg Capsule PO 05/20/25 02:39 100 mg HS RICARDA Administration Levothyroxine Sodium 25 mcg 04/20/25 06:00 04/23/25 05:33 Levothyroxine Sodium 25 Mcg Tablet PO 05/20/25 05:59 25 mcg ACBR RICARDA Administration Lisinopril 40 mg 04/23/25 09:00 04/23/25 08:46 Lisinopril 20 Mg Tablet PO 05/23/25 08:59 40 mg QDAY RICARDA Administration Melatonin 3 mg 04/20/25 21:00 04/22/25 20:45 Melatonin 3 Mg Tablet PO 05/20/25 20:59 3 mg HS RICARDA Administration Metoprolol Succinate 100 mg 04/20/25 09:00 04/22/25 09:26 Metoprolol Succinate Xl 25 Mg Tabcr PO 05/20/25 08:59 100 mg QDAY RICARDA Administration Ondansetron HCl 4 mg 04/20/25 02:29 Ondansetron Inj 2 Mg/Ml Inj 2 Ml IVP 05/20/25 02:28 Q6H PRN NAUSEA OR VOMITING Protocol Sennosides 1 tab 04/20/25 09:00 04/23/25 08:46 Senna Tablet PO 05/20/25 08:59 1 tab QDAY RICARDA Administration Protocol Sertraline HCl 50 mg 04/20/25 21:00 04/22/25 20:44 Sertraline Hcl 25 Mg Tablet PO 05/20/25 20:59 50 mg HS RICARDA Administration Plan Yin is an 80-year-old female with a past medical history of hypertension, atrial fibrillation on Eliquis, CHF HFrEF 35 to 44% (12/25), hypothyroidism, morbid obesity, IBS, Depression, Anxiety who was admitted for acute hypoxic respiratory failure and acute on chronic CHF exacerbation. #Acute on chronic Hypoxic Respiratory Failure, improving, secondary to #Acute on chronic CHF exacerbation #CHF HFrEF 35 to 44% (12/25) Patient presented with worsening lower peripheral edema, orthopnea, PND, and pulmonary vascular congestion noted on Cxr. BNP 237 likely CHF exacerbation vs PE less likely given Well Criteria of 1.5 and patient already on anticoagulated given Eliquis for Afib vs pneumonia unlikely as no pyrexia or leukocytosis Net fluid balance: +780 mL Will continue with IV diuresis at this time Plan: ? Gave Acetazolamide 500 mg x1 ? Increased to Lasix 40 mg IV BID ? Cardiology consulted, appreciate recommendations ? Continue home metoprolol XL 100 mg ? Echo Pending ? K>4 and Mg >2 ? Fluid Restriction 1800 and Sodium Restriction 2 g per day ? SpO <90%, support PRN ? Daily Weights ? GDMT as tolerated #? Hx of SALAS/OHS #? Chronic respiratory acidosis with appropriate Metabolic alkalosis #? Contraction alkalosis Pt appears to be slightly alkalotic, may represent chronic metabolic compensation However, pt could be having contraction alkalosis at the same time Pt denies using CPAP Also spoke with family who denies pt using CPAP Plan: ? Gave Acetazolamide 500 mg x1 ? biPAP Hs #Chronic Atrial Fibrillation, rate controlled [id number] HAS-BLED: 3 Rate: Regular Rhythm: Controlled AC: Eliquis Patient could possibly on Xarelto due to weight being 118 kg however is on Eliquis Plan: ? Continue home Amio 200 mg every day ? Continue home metoprolol XL 100 mg by mouth every day ? Continue Eliquis 5 mg by mouth twice daily ? Telemetry ? Keep magnesium and potassium above 2 and 4 respectively #Hypertension #Prediabetes Chronic HTN; home lisinopril 20 mg A1c 5.9 Plan: ? Increasing lisinopril to 40 mg PO Qday - Will continue to monitor blood glucose daily #Hypothyroidism TSH 4.08 on admission Patient takes levothyroxine 25 mcg po q am ? Continue home 25 mcg AC LA levothyroxine #History of anxiety Chronic anxiety ? Continue home Zoloft 50 mg #Health Maintenance Disposition: Telemetry DVT prophylaxis: Eliquis GI prophylaxis: Protonix Diet: Cardiac CODE STATUS: Full Patient plan of care was discussed with the attending physician, Dr. Dang & senior resident Dr. Kaveh Palmer MD PGY-1 Attending Provider Attestation/Addendum I have discussed and was present for the essential components of the history, physical examination, diagnosis, and treatment plan with the resident. I agree with the patient's care as documented by the resident and amended herein by me. Mark Dang DO. Although this document has been carefully reviewed, there may still be some phonetic and other typographical errors. These errors are purely grammatical due to imperfections in the software program and should not be construed in any way to compromise the substance of the patient's medical care during this visit. :
[2025-04-23] MEDS: SERTRALINE HCL 25 MG TABLET 50 MG PO (20:32)
[2025-04-23] MEDS: MELATONIN 3 MG TABLET PO (20:32)
[2025-04-23] MEDS: GABAPENTIN 100 MG CAPSULE PO (20:32)
--- NOTE | 2025-04-23 20:44 | ESPR_ITS ---
<Statement entered by Nilesh De Paz MD - 04/25/25 23:04> I personally examined the patient evaluate the patient patient is clinically doing well no evidence of heart failure stable to be discharged home and I will the team feels reasonable I will the patient's presentation and will be happy to follow the patient as an outpatient Documentation for date of: 04/23/25 Subjective Subjective Interval history: No acute overnight events. Continues feeling well. Currently on room air, satting well. However, she is desatting with minimal exertion. Otherwise denies fever, chills, headaches, chest pain, sob at rest, cough, GI or urinary symptoms. Exam Vital Signs Temp Pulse Resp BP Pulse Ox O2 Del Method O2 Flow Rate 96.8 F 65 18 113/49 L 97 Nasal Cannula 1 04/23/25 20:00 04/23/25 20:00 04/23/25 20:00 04/23/25 20:00 04/23/25 20:00 04/23/25 20:00 04/23/25 20:00 FiO2 30 04/22/25 02:37 Narrative Exam General: AAOx3, NAD, morbidly obese HEENT: Moist mucous membranes, conjunctiva clear, EOMI, PERRLA, poor dentition Cardiovascular: S1, S2, radial pulses +2 bilat, RRR Pulmonary: CTAB, no wheezing or rales or rhonchi. GI: No tenderness to light or deep palpitation, no guarding, rigidity, rebound tenderness or distension Extremities: 1+ bilateral extremity edema Neuro: AAOx3, no focal motor or sensory deficits in the UE or LE bilat Psych: Good judgement, thought and behavior Objective Labs 04/23/25 04:42 04/23/25 04:42 Labs: Laboratory Results - last 24 hr 04/23/25 04:42 WBC 6.6 RBC 4.03 Hgb 11.9 L Hct 37.8 MCV 94 MCH 29.5 MCHC 31.5 RDW Std Deviation 52.9 H Plt Count 210 Neut % (Auto) 70 Lymph % (Auto) 17 [place] % (Auto) 9 Eos % (Auto) 3 Baso % (Auto) 1 Neut # (Auto) 4.6 Lymph # (Auto) 1.1 [place] # (Auto) 0.6 Eos # (Auto) 0.2 Baso # (Auto) 0.0 Immature Gran # (Auto) 0.02 H Absolute Nucleated RBC 0.00 Immature Gran % 0 Nucleated RBC % 0 Sodium 140 Potassium 4.2 Chloride 96 L Carbon Dioxide 38.5 H Anion Gap 6 L BUN 16 Creatinine 0.9 Estim Creat Clear Calc 58.8 L eGFR > 60 BUN/Creatinine Ratio 18 Glucose 100 Calculated Osmolality 280 Calcium 9.0 Corrected Calcium 9.6 Phosphorus 3.8 Magnesium 1.6 Total Bilirubin 0.5 AST 46 H ALT 21 Alkaline Phosphatase 106 Total Protein 6.0 Albumin 3.2 L Globulin 2.8 Albumin/Globulin Ratio 1.1 L ABG Interpretation ABG results: 04/21/25 04:34 VBG pH 7.43 VBG pCO2 58 H VBG pO2 70 H VBG Base Excess 11 H Quality Measures Quality Measures VTE prophylaxis Advance care planning discussed with:: patient Assessment & Plan Assessment Current Active Medications: Generic Name Dose Route Start Last Admin Trade Name Freq PRN Reason Stop Dose Admin Acetaminophen 650 mg 04/20/25 02:29 Acetaminophen 325 Mg Tablet PO 05/20/25 02:28 Q6H PRN mild pain 1-3 or Fever >100.3 Alprazolam 0.5 mg 04/20/25 16:29 04/22/25 09:30 Alprazolam 0.25 Mg Tablet PO 04/25/25 16:28 0.5 mg BID PRN Administration ANXIETY Amiodarone HCl 200 mg 04/20/25 09:00 04/23/25 08:46 Amiodarone Hcl 200 Mg Tablet PO 05/20/25 08:59 200 mg QDAY RICARDA Administration Apixaban 5 mg 04/20/25 09:00 04/23/25 20:32 Apixaban 2.5 Mg Tablet PO 05/20/25 08:59 5 mg BID RICARDA Administration Famotidine 20 mg 04/20/25 09:00 04/23/25 20:32 Famotidine 20 Mg Tablet PO 05/20/25 08:59 20 mg BID RCIARDA Administration Furosemide 40 mg 04/23/25 18:00 04/23/25 17:10 Furosemide Inj 10 Mg/Ml 4ml Vial IVP 05/23/25 17:59 40 mg BIDD RICARDA Administration Gabapentin 100 mg 04/20/25 02:40 04/23/25 20:32 Gabapentin 100 Mg Capsule PO 05/20/25 02:39 100 mg HS RICARDA Administration Levothyroxine Sodium 25 mcg 04/20/25 06:00 04/23/25 05:33 Levothyroxine Sodium 25 Mcg Tablet PO 05/20/25 05:59 25 mcg ACBR RICARDA Administration Lisinopril 40 mg 04/23/25 09:00 04/23/25 08:46 Lisinopril 20 Mg Tablet PO 05/23/25 08:59 40 mg QDAY RICARDA Administration Melatonin 3 mg 04/20/25 21:00 04/23/25 20:32 Melatonin 3 Mg Tablet PO 05/20/25 20:59 3 mg HS RICARDA Administration Metoprolol Succinate 100 mg 04/20/25 09:00 04/22/25 09:26 Metoprolol Succinate Xl 25 Mg Tabcr PO 05/20/25 08:59 100 mg QDAY RICARDA Administration Ondansetron HCl 4 mg 04/20/25 02:29 Ondansetron Inj 2 Mg/Ml Inj 2 Ml IVP 05/20/25 02:28 Q6H PRN NAUSEA OR VOMITING Protocol Sennosides 1 tab 04/20/25 09:00 04/23/25 08:46 Senna Tablet PO 05/20/25 08:59 1 tab QDAY RICRADA Administration Protocol Sertraline HCl 50 mg 04/20/25 21:00 04/23/25 20:32 Sertraline Hcl 25 Mg Tablet PO 05/20/25 20:59 50 mg HS RICARDA Administration Plan This is an 80-year-old female with PMH of hypertension, atrial fibrillation on ELIQUIS, HFpEF EEF 60% from 04/2024, hypothyroidism, morbid obesity, IBS, depression, and anxiety who presented from her assisted living facility with worsening shortness of breath and pulmonary congestion on chest X-ray. IMPRESSION: 1. Acute on chronic hypoxic respiratory failure. 2. Heart failure with preserved ejection and congestive heart failure, improved. 3. Last ejection fraction was 60% in 2023. 4. Obstructive sleep apnea. 5. Obesity. 6. Chronic atrial fibrillation, on Eliquis. CHADS-VASc score is 5. The patient was evaluated for cardiovascular concerns after being admitted with shortness of breath, possible congestive heart failure, and a history of atrial fibrillation on ELIQUIS. She has a prior negative angiogram and a recent echocardiogram from 04/2024 showing an ejection fraction of 60%. She also has a history of HFpEF, hypertension, and hypothyroidism. Clinically, she currently appears only mildly congested and is not experiencing chest pain or shortness of breath. Much of her prior symptoms were attributed to anxiety and panic attacks, and she reports feeling significantly better at this time. RECOMMENDATIONS: Continue medical management including amiodarone and metoprolol and no need for any further cardiac workup. She did have coronary angiogram performed by me few years ago in 2020. Coronary angiogram showed nonobstructive coronary artery disease. No need to hold inpatient echocardiogram as patient is not currently in significant CHF exacerbation. Recommended discharging on BUMEX 1 mg daily. Follow-up closely outpatient for repeat echo. Recommend discharge on home oxygen as well. Case was discussed with attending physician, Dr. De Paz. Jose Swain, PGY II This document was transcribed using voice recognition technology. Minor inaccuracies may be present.
[2025-04-24] VITALS (7 sets, daily range): BP systolic 109–128; BP diastolic 45–74; PULSE 54–88; RESP 14–18; TEMP 36–36.1; O2SAT 93–99
[2025-04-24] MEDS: FUROSEMIDE INJ 10 MG/ML 4ML VIAL 40 MG IVP (06:08)
[2025-04-24] MEDS: LEVOTHYROXINE SODIUM 25 MCG TABLET PO (06:08)
[2025-04-24 06:48] LABS: Basophils # (Auto) 0.0 Thou/mm3 (0.0-0.2); Basophils % (Auto) 1 % (0-2.5); Eosinophils # (Auto) 0.2 Thou/mm3 (0.0-0.5); Eosinophils % (Auto) 3 % (0-10); Hematocrit 39.8 % (36.0-46.0); Hemoglobin 12.2 g/dL (12.0-16.0); Immature Granulocytes Auto 0.02 Thou/mm3 (0.00-0.00); Lymphocytes # (Auto) 1.5 Thou/mm3 (1.0-4.8); Lymphocytes % (Auto) 23 % (10-50); Mean Corpuscular HGB Conc 30.7 g/dl (31.0-37.0); Mean Corpuscular Hemoglobin 28.8 pg (25.0-35.0); Mean Corpuscular Volume 94 fL (80-100); Monocytes # (Auto) 0.6 Thou/mm3 (0.0-0.8); Monocytes % (Auto) 9 % (0-12); Neutrophils # (Auto) 4.2 Thou/mm3 (1.8-7.7); Neutrophils % (Auto) 64 % (37-80); Nucleated Red Blood Cell # 0.00 Thou/mm3 (0.00-0.00); Nucleated Red Blood Cell % 0 /100 WBC (0); Platelet Count 227 Thou/mm3 (140-440); RDW Standard Deviation 53.4 fL (36.4-46.3); Red Blood Count 4.24 Miln/mm3 (4.00-5.20); White Blood Count 6.6 Thou/mm3 (3.6-11.0)
[2025-04-24 07:07] LABS: Alanine Aminotransferase 22 U/L (10-49); Albumin, Serum 3.3 gm/dL (3.4-4.8); Albumin/Globulin Ratio 1.1 (1.2-2.2); Alkaline Phosphatase 115 U/L (46-116); Anion Gap 7 (7-16); Aspartate Amino Transferase 49 U/L (0-34); BUN/Creatinine Ratio 18 Ratio (12-20); Bilirubin,Total 0.5 mg/dL (0.3-1.2); Blood Urea Nitrogen 16 mg/dL (9-23); Calcium 9.0 mg/dL (8.3-10.6); Calcium (Corrected) 9.6 mg/dL (8.5-10.1); Carbon Dioxide 35.2 mMol/L (20.0-31.0); Chloride 98 mMol/L (98-107); Creatinine (Component) 0.9 mg/dL (0.6-1.3); Estimated Creatinine Clearance 56.8 mL/min (>60); Globulin 2.9 gm/dL (2.3-3.5); Glucose 93 mg/dL (74-106); Magnesium 2.0 mg/dL (1.6-2.6); Osmolality,Calculated 280 (275-295); Phosphorous 3.4 mg/dL (2.4-5.1); Potassium 4.0 mMol/L (3.4-5.1); Sodium 140 mMol/L (136-145); Total Protein 6.2 gm/dL (5.7-8.2); eGFR > 60 See Note
[2025-04-24] MEDS: FAMOTIDINE 20 MG TABLET PO (08:07)
[2025-04-24] MEDS: AMIODARONE HCL 200 MG TABLET PO (08:07)
[2025-04-24] MEDS: APIXABAN 2.5 MG TABLET 5 MG PO (08:07)
--- NOTE | 2025-04-24 08:19 | CHAP ---
Patient was visited by a Spiritual Care Volunteer on 04/23/2025 between 0900 and 1200 and received comfort, encouragement and/or prayer.
--- NOTE | 2025-04-24 13:02 | PC.SS ---
Addendum entered by Natali Vance 04/24/25 13:58: SS follow up note; SS was contacted by Penny from [place], ETA was set for 1530. SS contacted Super[employer] August and he will notify patient's nurse Amelia Addendum entered by Natali aVnce 04/24/25 13:42: SS follow up note; SS notified patient's daughter, Reyna that patient was discharging today back to [facility]. Patient's nurse, Amelia aware as well. Original Note: SS follow up note; SS set up transportation with [facility], Reference # [id number].
[2025-04-24] MEDS: ACETAMINOPHEN 325 MG TABLET 650 MG PO (13:10)
--- NOTE | 2025-04-24 13:51 | ESDS_ITS ---
<Statement entered by Zac Stevens MD - 04/24/25 14:14> I have reviewed the note and agree with the resident's assessment & plan with exceptions as below. I have personally reviewed labs, imaging, home meds/prior records, examined the patient, formulated and discussed management plan with the IM team. Pt examined at bedside today. No acute overnight events. Pt currently is on 1L NC, net -1 L for admission. Cardiology has cleared pt for d/c with Bumex 1 mg qday, and also for strict follow up and echo outpatient. We held metoprolol XL for patient as she had been running borderline bradycardic, recommended to resume with her PCP/Radar Tester. We continued pt's home medicines and patient was then discharged with the instructions listed below. Zac Stevens, PGY-2 Internal Medicine Planned Discharge Date 04/24/25 DS: Providers Provider Date of admission: 04/20/25 02:21 Primary care physician: Milly Garcia MD Admitting Provider: Nick Moncada MD Attending Provider on Admission: Hosea Bonilla MD Consults: 04/20/25 10:32 Consult to Cardiology Routine Comment: Consulting Provider: Nilesh De Paz Attending Provider on DC: Jeremy Dang DO Discharging Provider: Jeremy Dang DO DS: Diagnosis Problem List Completed Was Problem List Reviewed/Reconciled?: Yes Hospital Course Hospital Course Hospital course: Patient is an 80-year-old female with a past medical history of hypertension, atrial fibrillation on Eliquis, 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 She was admitted for acute hypoxic respiratory failure and acute on chronic CHF exacerbation. Patient was initially given oxygen for her oxygen desaturations and quickly improved with continued stability over the hospital course to the point of not needing any supplemental O2 by discharge. Patient was found to be fluid overloaded with elevated BNP to 237. Patient was initially given IV lasix 40 mg pushes and was continued on lasix and eventually started on acetazolamide for increased diuresis and due to chronic metabolic acidosis on labs showing continued elevation of bicarb. Cardiology recommended that she be discharged on Bumex 1 mg daily. Patient is being discharged clinically stable and without the need for supportive oxygen. Discharge Instructions Follow-up with your PCP within 1 week Take your medicines as prescribed I am prescribing you a new water pill, Bumex, take as prescribed I am holding your metoprolol at this time, as it was slightly low inpatient. Resume with your PCP/security installer Please follow up with your security installer, Dr. De Paz. You will need to do an echo outpatient Return to ED if your symptoms worsen or return Admission Diagnosis #Acute on chronic Hypoxic Respiratory Failure #Acute on chronic CHF exacerbation #CHF HFrEF 35 to 44% #Hx of SALAS/OHS #Chronic respiratory acidosis with appropriate Metabolic alkalosis #Contraction alkalosis #Chronic Atrial Fibrillation, rate controlled #Hypertension #Prediabetes #Hypothyroidism #History of anxiety Patient plan of care was discussed with the attending physician, Dr. Dang & resident Dr. Hilda Palmer MD PGY-1 Time Spent with Patient Time attestation: Total time spent providing and/or coordinating discharge services: Time spent: Greater than 30 minutes Exam Vital Signs Temp Pulse Resp BP Pulse Ox O2 Del Method O2 Flow Rate 97 F 59 L 18 125/62 93 L Room Air 1 04/24/25 12:00 04/24/25 12:00 04/24/25 12:00 04/24/25 12:00 04/24/25 12:00 04/24/25 12:00 04/24/25 08:00 FiO2 30 04/22/25 02:37 Narrative Exam General: no acute distress, A&Ox3 HEENT: Moist mucous membranes, conjunctiva clear, EOMI, PERRLA, poor dentition Cardiovascular: S1, S2, radial pulses +2 bilat, RRR Pulmonary: Minimal crackles present, no cough, no wheezing GI: No tenderness to light or deep palpitation, no guarding, rigidity, rebound tenderness or distension Extremities: LE 1+ edema; Anasarca present going to proximal LE bilat; Neuro: no focal motor or sensory deficits in the UE or LE bilat Psych: Good judgement, thought and behavior Discharge Plan Plan Patient Disposition: Xfer Skilled Nsg Fac (SNF) Patient condition on transfer: Stable Care Plan Goals: Discharge instructions Follow-up with your PCP within 1 week Take your medicines as prescribed I am prescribing you a new water pill, Bumex, take as prescribed I am holding your metoprolol at this time, as it was slightly low inpatient. Resume with your PCP/security installer Please follow up with your security installer, Dr. De Paz. You will need to do an echo outpatient Return to ED if your symptoms worsen or return Prescriptions/Referrals Prescriptions/Med Rec: New bumetanide 1 mg tablet 1 mg PO QDAY 30 Days Qty: 30 0RF Rx Instructions: Take one tablet by mouth every day Continued magnesium hydroxide [Milk of Magnesia] 400 mg/5 mL suspension 5 ml PO Q48H PRN (Reason: Constipation) Rx Instructions: if no bm for 2 days alprazolam 0.5 mg Tablet 0.5 mg PO BID PRN (Reason: Anxiety) hydrocodone-acetaminophen 5-325 mg Tablet 1 tab PO Q6H PRN (Reason: Pain) lisinopril 20 mg Tablet 20 mg PO QDAY Qty: 0 0RF Rx Instructions: Hold if SBP <110 or DBP <60 levothyroxine 25 mcg tablet 25 mcg PO QAM Patient Comments: TAKE 1 TABLET BY MOUTH EVERY DAY IN THE MORNING ON AN EMPTY STOMACH FOR THYROID gabapentin 100 mg capsule 100 mg PO HS acetaminophen 325 mg Tablet 650 mg PO Q6H PRN (Reason: Pain) amiodarone 200 mg Tablet 200 mg PO QDAY bisacodyl [Dulcolax (bisacodyl)] 10 mg Suppository 10 mg HI Q24H PRN (Reason: Constipation) Rx Instructions: After admin of MOM and BM for 8H esomeprazole magnesium 40 mg Capsule,Delayed Release(Dr/Ec) 40 mg PO QAM Eliquis 5 mg tablet 5 mg PO Q12H melatonin 3 mg capsule 3 mg PO HS multivitamin [Multiple Vitamins] Tablet 1 tab PO QDAY alum-mag hydroxide-simeth [Advanced Antacid-Antigas] 200-200-20 mg/5 mL suspension 5 ml PO Q12H PRN (Reason: indigestion) sertraline 25 mg tablet 50 mg PO QDAY ursodiol 250 mg tablet 250 mg PO Q12H ondansetron HCl 4 mg tablet 4 mg PO Q8H PRN (Reason: nausea and vomiting) Held metoprolol succinate [Toprol XL] 100 mg Tablet Extended Release 24 Hr 100 mg PO QDAY Hold Instructions: resume with pcp Discontinued furosemide 20 mg tablet 1 tab PO QDAY Rx Instructions: Hold for SBP<110, DBP <60 Referrals: Milly Garcia MD [Primary Care Provider] - Patient/Caregiver Discharge Instructions Discharge Activity: activity as tolerated Education Materials: Heart Failure: Tracking Your Weight, Coping with Heart Failure, CHF Ch Print Language: Armenian Stand Alone Forms: Juanita Award Info., Patient Portal Info Letter Discharge Order Discharge Orders: Discharge (Routine); Ordered 04/24/25 Ordered By: Zac Stevens Quality Discharge Quality Measures VTE prophylaxis (Eliquis ) Attestestation MD Attestation I have discussed and was present for the essential components of the discharge history, physical examination, diagnosis, and discharge treatment plan with the resident. I agree with the patient's discharge care as documented by the resident and amended herein by me. Mark Dang DO. The patient understood all discharge instructions, all questions were answered satisfactorily. The patient was instructed to return to the Emergency Department is symptoms worsened or persisted. Can consider echocardiogram on an outpatient setting, cleared for discharge per cardiology, patient was stable, afebrile and tolerating p.o. intake at time of discharge to SNF. Although this document has been carefully reviewed, there may still be some phonetic and other typographical errors. These errors are purely grammatical due to imperfections in the software program and should not be construed in any way to compromise the substance of the patient's medical care during this visit.
== END 2025-04-24 16:27 | disposition skilled nursing facility (03) | DRG 291 ==
LOC: SERX 16:16 → SERHOLD 04-20 03:28 → S3SX 04-20 05:33
PROVIDERS: Emergency Medicine; Admitting Provider Internal Medicine; Emergency Provider Family Medicine; PCP Hospitalist; Visit Provider Student in an Organized Health Care Education/Training Program
DX: I11.0 Hypertensive heart disease with heart failure (principal); I50.43 Acute on chronic combined systolic (congestive) and diastolic (congestive) heart failure; J96.21 Acute and chronic respiratory failure with hypoxia; I48.20 Chronic atrial fibrillation, unspecified; Z68.42 Body mass index [BMI] 45.0-49.9, adult; E87.4 Mixed disorder of acid-base balance; E66.01 Morbid (severe) obesity due to excess calories; E03.9 Hypothyroidism, unspecified; K58.9 Irritable bowel syndrome, unspecified; F32.A Depression, unspecified; F41.0 Panic disorder [episodic paroxysmal anxiety]; E11.65 Type 2 diabetes mellitus with hyperglycemia; G47.33 Obstructive sleep apnea (adult) (pediatric); Z79.01 Long term (current) use of anticoagulants; R73.03 Prediabetes; I50.9 Heart failure, unspecified; Z79.890 Hormone replacement therapy; Z79.4 Long term (current) use of insulin; Z79.899 Other long term (current) drug therapy
CPT/HCPCS: 36415; 71045; 80053; 80061; 80307; 81001; 82803; 83036; 83735; 83880; 84100; 84145; 84443; 84484; 85025; 87081; 87086; 87400; 87811; 93005; 93225; 93970; 94660; 94762; 96374; 96376; 99284; J1120; J1938; J3475; J7050; A9270

== ENCOUNTER 2025-05-03 18:39 | Emergency (ER) | payer MEDICARE, MEDICAID, SELFPAY ==
[2025-05-03 18:43] VITALS: BP 151/69; PULSE 87; RESP 18; TEMP 36.6; O2SAT 95
[2025-05-03 19:21] VITALS: PULSE 100; RESP 16; O2SAT 95; BMI 54.5
--- NOTE | 2025-05-03 19:32 | XR_ITS ---
Examination: CT brain head without contrast. 2-D sagittal coronal reconstructions Date and time of exam:May 03, 2025, 1949 hrs. Indications: Onset headache beginning one week ago CTDI: vol (mGy):50.1. DLP: (mGycm):940 Technique: Multiple CT axial sections of the brain have been obtained, 5 mm slice thickness. Contrast has not been administered. 2-D sagittal, coronal reconstructions have been obtained Low dose protocols were performed. One or more of the following dose reduction techniques were used; automated exposure control, adjustment of the mA and/or KV according to patient size, use of iterative reconstruction technique. Findings: No significant ventricular enlargement. Intra-axial or extra-axial hemorrhage density is not seen. No mass effect or midline shift Basal cisterns are not remarkable. Fourth ventricle is midline. Cranial vault intact. Impression: Negative for acute hemorrhage, mass effect or midline shift Prominent right caudate sphenoid sinusitis
--- NOTE | 2025-05-03 19:32 | PD.EDHA ---
ED Headache RME/HPI General Chief Complaint: Headache Stated Complaint: HYPERTENSION Time Seen by Provider: 05/03/25 19:19 Arrival date/time: 05/03/25 18:39 RME / HPI RME / HPI Narrative: 80-year-old female patient was brought to us from group home for evaluation regarding headache. Patient been doing headache since lunchtime today described as dull ache, severity moderate. They checked her blood pressure and her blood pressure was noted to be 191 systolic in the group home. When the EMS arrived patient's blood pressure was noted to be 165 systolic. On my initial evaluation patient blood pressure was noted to be 151/69, heart rate of 87. Patient's headache is described as dull ache, severity 5 out of 10. Patient was given Tylenol prior to ER visit. Patient denies any slurring of speech. Denies any upper or lower extremity weakness. Related Data Home Medications ?Medication ?Instructions ?Recorded ?Confirmed alprazolam 0.5 mg tablet 0.5 mg PO BID PRN Anxiety 01/05/21 04/20/25 gabapentin 100 mg capsule 100 mg PO HS 10/14/21 04/20/25 levothyroxine 25 mcg tablet 25 mcg PO QAM 10/14/21 04/20/25 acetaminophen 325 mg tablet 650 mg PO Q6H PRN Pain 12/28/21 04/20/25 amiodarone 200 mg tablet 200 mg PO QDAY 12/28/21 04/20/25 bisacodyl 10 mg rectal suppository 10 mg AZ Q24H PRN Constipation 12/28/21 04/20/25 (Dulcolax (bisacodyl)) esomeprazole magnesium 40 mg 40 mg PO QAM 12/28/21 04/20/25 capsule,delayed release hydrocodone 5 mg-acetaminophen 325 1 tab PO Q6H PRN Pain 12/30/21 04/20/25 mg tablet magnesium hydroxide 400 mg/5 mL 5 ml PO Q48H PRN Constipation 08/12/22 04/20/25 oral suspension (Milk of Magnesia) metoprolol succinate 100 mg 100 mg PO QDAY 05/26/24 04/20/25 tablet,extended release 24 hr (Toprol XL) Held on 04/24/25. Instructions: resume with pcp aluminum-mag hydroxide-simethicone 5 ml PO Q12H PRN indigestion 04/20/25 04/20/25 200 mg-200 mg-20 mg/5 mL oral susp (Advanced Antacid-Antigas) apixaban 5 mg tablet (Eliquis) 5 mg PO Q12H 04/20/25 04/20/25 melatonin 3 mg capsule 3 mg PO HS 04/20/25 04/20/25 multivitamin (Multiple Vitamins 1 tab PO QDAY 04/20/25 04/20/25 tablet) ondansetron HCl 4 mg tablet 4 mg PO Q8H PRN nausea and vomiting 04/20/25 04/20/25 sertraline 25 mg tablet 50 mg PO QDAY 04/20/25 04/20/25 ursodiol 250 mg tablet 250 mg PO Q12H 04/20/25 04/20/25 Previous Rx's ?Medication ?Instructions ?Recorded lisinopril 20 mg tablet 20 mg PO QDAY #0 tabs 01/06/22 bumetanide 1 mg tablet 1 mg PO QDAY 1 month #30 tabs 04/24/25 amoxicillin 875 mg-potassium 1 tab PO BID #14 tabs 05/03/25 clavulanate 125 mg tablet Allergies Allergy/AdvReac Type Severity Reaction Status Date / Time No Known Allergies Allergy Verified 05/26/24 09:43 Review of Systems Review of Systems Narrative Review of Systems: Review of system reviewed and within normal limits except mentioned in HPI ED Exam Narrative Physical exam: VITAL SIGNS: Reviewed. GENERAL APPEARANCE: Alert and interactive, follows commands, no acute distress, morbidly obese HEAD AND FACE: Non-traumatic. ENT: PERRL, pink conjunctivitis, eyelid no trauma, Mucous membrane moist. NECK: Supple, nontender, no nuchal rigidity. CHEST: No tenderness, no crepitus, no paradoxical movement, no retractions. LUNGS: Clear, well ventilated, symmetric, no rales, no wheezing, no ronchi, no stridor, good breath sounds bilaterally. HEART: Regular rate, regular rhythm, no murmur, no gallops. ABDOMEN: Soft, positive bowel sounds, nondistended, no guarding, nontender, no rebound, no masses, RECTAL: Deferred. GENITAL: Deferred. NEUROLOGICAL: Gross motor function intact sensory function intact, Appropriate for age. MUSCULOSKELETAL: low back nontender, full range of motion. EXTREMITIES: Nontender, full range of motion. SKIN: Color pink, dry, no rash, no lacerations, no abrasions, no contusions. LYMPHATICS: Deferred. Course Quality Measures none Orders Category Date Time Status CT head/brain wo con Stat Exams 05/03/25 19:32 Completed Amoxicillin/Pot Clav 875 [Augmentin 875] Med 05/03/25 22:24 Discontinued 1 tab PO X1 ONE Vital Signs Vital signs: Vital Signs Temperature 97.9 F 05/03/25 18:43 Pulse Rate 87 05/03/25 18:43 Respiratory Rate 18 05/03/25 18:43 Blood Pressure 151/69 H 05/03/25 18:43 Pulse Oximetry (%) 95 05/03/25 18:43 Oxygen Delivery Method Room Air 05/03/25 18:43 Headache MDM Narrative MDM Narrative:: 80-year-old female patient was brought to us from group home for evaluation regarding headache. Patient been doing headache since lunchtime today described as dull ache, severity moderate. They checked her blood pressure and her blood pressure was noted to be 191 systolic in the group home. When the EMS arrived patient's blood pressure was noted to be 165 systolic. On my initial evaluation patient blood pressure was noted to be 151/69, heart rate of 87. Patient's headache is described as dull ache, severity 5 out of 10. Patient was given Tylenol prior to ER visit. Patient denies any slurring of speech. Denies any upper or lower extremity weakness. Patient blood pressures remained stable in the emergency room. Latest blood pressure was noted to be 156/83. Heart rate of 79. Patient was given Augmentin for CT scan result that showed Negative for acute hemorrhage, mass effect or midline shift Prominent right caudate sphenoid sinusitis Plan of care discussed with the patient and family. Patient appears nontoxic and hemodynamically stable .Decision to discharge the patient. The patient/family was given an opportunity to ask questions and understood their discharge instructions. Discharge instructions specifically included follow up provider and time frame, current and/or new medications and possible side effects, indications for sooner follow up or return to the emergency department, and the expected course of current diagnosis. Patient reports feeling better as well and giving evidence of significant clinical improvement, I believe patient is now a candidate for discharge. Patient data External records reviewed:: None Clinical information provided by:: none Social determinants that could affect healthcare access:: none Patient has the following chronic illnesses:: Chronic debility, wheelchair-bound How is presenting disease/condition affected by chronic disease/condition?: exacerbated by Evaluation data The following diagnostics were reviewed and interpreted by me:: radiology exam(s) Lab and/or radiology exams considered but not ordered:: None Interpretation Summary: See results MDM Medications / Prescriptions Medications or Prescriptions considered but not ordered:: None Medication administrations:: Medication Administration History Discontinued Medications Amoxicillin/Clavulanate Potassium (Amoxicillin/Pot Clav 875 Tablet) 1 tab PO X1 ONE Stop: 05/03/25 22:25 Augmentin Consultations Consultation(s) initiated? (list below): No Diagnosis Differential diagnosis headache: migraine, tension headache and sinusitis Most likely diagnosis given after review of the tests above:: Headache, sinusitis Admission Indicated Admission indicated?: not indicated Admission Request Was there a request for admission?: No Disposition Plan Disposition Plan: Discharge Discharge Attestation Discharge Attestation: The patient and all family members were given an opportunity to ask questions and understood the discharge instructions. Discharge instructions specifically effects, indications for sooner follow up or return to the emergency department, and the expected course of current diagnosis. Patient condition: Stable Discharge Plan Plan Patient Disposition: HOME (Self Care) Discharge Disposition comment: Stable Prescriptions/Referrals Prescriptions/Med Rec: New amoxicillin-pot clavulanate 875-125 mg tablet 1 tab PO BID Qty: 14 0RF No Action magnesium hydroxide [Milk of Magnesia] 400 mg/5 mL suspension 5 ml PO Q48H PRN (Reason: Constipation) Rx Instructions: if no bm for 2 days alprazolam 0.5 mg Tablet 0.5 mg PO BID PRN (Reason: Anxiety) hydrocodone-acetaminophen 5-325 mg Tablet 1 tab PO Q6H PRN (Reason: Pain) lisinopril 20 mg Tablet 20 mg PO QDAY Qty: 0 0RF Rx Instructions: Hold if SBP <110 or DBP <60 levothyroxine 25 mcg tablet 25 mcg PO QAM Patient Comments: TAKE 1 TABLET BY MOUTH EVERY DAY IN THE MORNING ON AN EMPTY STOMACH FOR THYROID gabapentin 100 mg capsule 100 mg PO HS acetaminophen 325 mg Tablet 650 mg PO Q6H PRN (Reason: Pain) amiodarone 200 mg Tablet 200 mg PO QDAY bisacodyl [Dulcolax (bisacodyl)] 10 mg Suppository 10 mg AZ Q24H PRN (Reason: Constipation) Rx Instructions: After admin of MOM and BM for 8H esomeprazole magnesium 40 mg Capsule,Delayed Release(Dr/Ec) 40 mg PO QAM metoprolol succinate [Toprol XL] 100 mg Tablet Extended Release 24 Hr 100 mg PO QDAY Eliquis 5 mg tablet 5 mg PO Q12H melatonin 3 mg capsule 3 mg PO HS multivitamin [Multiple Vitamins] Tablet 1 tab PO QDAY alum-mag hydroxide-simeth [Advanced Antacid-Antigas] 200-200-20 mg/5 mL suspension 5 ml PO Q12H PRN (Reason: indigestion) sertraline 25 mg tablet 50 mg PO QDAY ursodiol 250 mg tablet 250 mg PO Q12H ondansetron HCl 4 mg tablet 4 mg PO Q8H PRN (Reason: nausea and vomiting) bumetanide 1 mg tablet 1 mg PO QDAY 30 Days Qty: 30 0RF Rx Instructions: Take one tablet by mouth every day Referrals: No Primary/Family,Physician [Primary Care Provider] - In 1 week Problem List Clinical Impression: Headache, Sinusitis Patient/Caregiver Discharge Instructions Discharge Activity: activity as tolerated Education Materials: Preventing Sinusitis Additional Instructions: Thank you for the opportunity for serving you today. You are stable for discharged . You are advised to: Follow-up with your PCP in 1 to 2 days Return to ED for worsening of symptoms Increase oral fluids Take medication as prescribed Augmentin, 875 mg twice daily for 7 days Print Language: Arabic Stand Alone Forms: Juanita Award Info., Patient Portal Info Letter ALEXANDRA/KARIN Supervising Physician DANIELLE Supervising Physician: MD Matti
[2025-05-03 20:02] VITALS: BP 151/66; PULSE 82; RESP 21; TEMP 36.9; O2SAT 96
[2025-05-03 22:18] VITALS: BP 156/83; PULSE 79; RESP 18; TEMP 36.9; O2SAT 94
[2025-05-03] MEDS: AMOXICILLIN/POT CLAV 875 TABLET 1 TAB PO (22:30)
[2025-05-04 00:19] VITALS: BP 156/83; PULSE 87; RESP 19; O2SAT 95
== END 2025-05-04 00:21 | disposition home or self-care (01) ==
PROVIDERS: Emergency Provider Emergency Medicine
DX: J32.3 Chronic sphenoidal sinusitis (principal)
CPT/HCPCS: 70450; 99283; A9270

== ENCOUNTER → 2025-07-29 | Outpatient (CLI) | payer MEDICARE, MEDICAID, SELFPAY ==
--- NOTE | 2025-07-29 15:00 | XR_ITS ---
Examination: CT right femur, without contrast. 2-D sagittal reconstructions. 2-D coronal reconstructions. 3-D reconstructions. Date and time of exam: July 29, 2025, 1658 hours INDICATIONS: Right leg swelling and pain this week CTDI: vol (mGy): 22.7 DLP: (mGycm): 1355 Technique: Multiple 1.25 mm axial sections of the right lower extremity have been obtained. 2-D sagittal and coronal reconstructions have been obtained. 3-D reconstructions have been obtained. Low dose protocols were performed. One or more of the following dose reduction techniques were used; automated exposure control, adjustment of the mA and/or KV according to patient size, use of iterative reconstruction technique. Findings: Healed fracture proximal femoral shaft Severe osteopenia Intramedullary femoral sandro satisfactory position Healed fracture proximal tibia Orthopedic hardware satisfactory position Moderate narrowing hip joint No iggy cortical bone destruction Opacification right common femoral artery as well as superficial femoral artery and popliteal artery Anterior tibial posterior tibial and main continuation trunk do fill to the last axial image Extensive edema in the subcutaneous fatty tissue surrounding the knee and femur No soft tissue abscess No iggy cortical bone destruction Abundant stool in the rectum IMPRESSION: Severe osteopenia Healed fractures proximal femoral shaft and proximal tibia Negative for osteomyelitis Cellulitis pattern Right superficial femoral artery, popliteal artery, anterior tibial posterior tibial and main continuation trunks are patent There is no significant opacification of venous channels but please see the venous Doppler report April 19, 2025
== END | disposition home or self-care (01) ==
PROVIDERS: PCP Hospitalist; Referring Provider Hospitalist; Visit Provider Hospitalist
DX: M85.88 Other specified disorders of bone density and structure, other site (principal)
CPT/HCPCS: 73701; A4649; Q9967